=== PATIENT | female | born 1965 | race Caucasian/White ===

== ENCOUNTER 2020-12-13 16:36 | Emergency (ER) | payer MEDICAID ==
--- NOTE | 2020-12-13 17:10 | EDM.PDOC ---
ED HPI GENERAL MEDICAL PROBLEM - General Stated Complaint: GENERAL Time Seen by Provider: 12/13/20 17:05 Source of Information: Reports: Patient History Limitations: Reports: No Limitations - History of Present Illness INITIAL COMMENTS - FREE TEXT/NARRATIVE: pt comes in with here niec with multiple c/o chronic problems , including recurrent swelling of lower extremities on and off for years, has been getting worse the past 2-3 weeks, also c/o chronic low back pain, depression, poor feeding and poor appetite, pt report mild dry cough and worried today about covid, pt reports chronic dyspnea, denies fever or chills, or any other associated sx or concerns. pt is originally from [place], has moved to this [facility] about a year ago, indicates Hx of DM, CHF, CAD. depression . pt denies any other acute sx or concerns. Bilateral Lower Leg Pain Score (Numeric/FACES): 4 - Related Data Allergies Allergy/AdvReac Type Severity Reaction Status Date / Time No Known Allergies Allergy Verified 12/13/20 17:56 Home Meds: Home Meds Acetaminophen [Tylenol Arthritis Pain] 1,300 mg PO BID 12/13/20 [History] Cetirizine [ZyrTEC] 10 mg PO DAILY 12/13/20 [History] Cyanocobalamin/Folic Acid [Vitamin L93-Aofvi Acid] 50 mcg PO DAILY 12/13/20 [History] DULoxetine [Cymbalta] 60 mg PO DAILY 12/13/20 [History] Fenofibrate Nanocrystallized [Fenofibrate] 145 mg PO DAILY 12/13/20 [History] Metoprolol Succinate 50 mg PO DAILY 12/13/20 [History] Omeprazole 20 mg PO DAILY 12/13/20 [History] amLODIPine [Norvasc] 5 mg PO DAILY 12/13/20 [History] atorvaSTATin [Lipitor] 80 mg PO DAILY 12/13/20 [History] lisinopriL [Lisinopril] 40 mg PO DAILY 12/13/20 [History] metFORMIN [Glucophage] 500 mg PO BID 12/13/20 [History] ED ROS GENERAL - Review of Systems Review Of Systems: See Below Constitutional: Reports: Weakness, Fatigue. Denies: Fever, Malaise HEENT: Reports: No Symptoms Respiratory: Reports: Shortness of Breath, Cough. Denies: Pleuritic Chest Pain Cardiovascular: Reports: No Symptoms Endocrine: Reports: No Symptoms GI/Abdominal: Reports: No Symptoms : Reports: No Symptoms Musculoskeletal: Reports: Back Pain, Joint Pain. Denies: Muscle Stiffness Skin: Reports: No Symptoms Neurological: Reports: No Symptoms ED EXAM, GENERAL - Physical Exam Exam: See Below Exam Limited By: No Limitations General Appearance: Alert, No Apparent Distress Eye Exam: Bilateral Eye: Normal Inspection Ears: Normal TMs Nose: Normal Inspection Throat/Mouth: Normal Oropharynx Head: Atraumatic, Normocephalic Neck: Normal Inspection Respiratory/Chest: No Respiratory Distress, Lungs Clear, Normal Breath Sounds Cardiovascular: Normal Peripheral Pulses, Regular Rate, Rhythm, No Murmur GI/Abdominal: Normal Bowel Sounds, Soft, Non-Tender Back Exam: Normal Inspection Extremities: Normal Inspection, Normal Range of Motion, Normal Capillary Refill, Pedal Edema (pt has bilateral 2+ pitting edema at her feet. ) Neurological: Alert, Oriented, CN II-XII Intact, Normal Reflexes, No Motor/Se nsory Deficits Psychiatric: Normal Affect. No: Depressed Mood, Flat Affect, Tearful Skin Exam: Warm, Dry Course - Vital Signs Text/Narrative:: lab results were explained to pt, pt has mildly elevated WBC and liver enzymes / she is stable to follow on those issue with PCP. her peripheral edema is chronic and recurrent, i did ask her to stop her amlodipin as it will make this specific problem worse and i will place her on low dose lasix for few days, pt to follow with PCP in 1 week for re check. she is also to discuss then mng of chronic back pain and depression which they appear stable. Last Recorded V/S: Last Vital Signs Temp 36.4 C 12/13/20 16:36 Pulse 90 12/13/20 16:36 Resp 20 12/13/20 16:36 BP 110/73 12/13/20 16:36 Pulse Ox 98 12/13/20 16:36 - Orders/Labs/Meds Orders: Active Orders 24 hr Category Date Time Status CORONAVIRUS COVID-19 ORQUIDEA [MOLEC] Stat Lab 12/13/20 17:44 Received TSH ULTRASENSITIVE [CHEM] Stat Lab 12/13/20 17:40 Received Labs: Laboratory Tests 12/13/20 12/13/20 Range/Units 17:40 17:40 WBC 14.4 H (3.0-10.3) x10-3/uL RBC 3.52 L (3.60-5.20) x10(6)uL Hgb 12.2 (11.4-15.5) g/dL Hct 39.5 (34.2-48.2) % MCV 112.3 H (76.7-100.5) fL MCH 34.6 H (23.9-33.9) pg MCHC 30.8 L (31.9-34.8) g/dL RDW 16.3 (12.3-16.5) % Plt Count 389 (151-488) x10(3)uL MPV 8.0 (7.1-12.4) fL Neut % (Auto) 70.8 (30.8-76.2) % Lymph % (Auto) 22.8 (18.4-52.1) % Ida % (Auto) 5.5 (4.4-15.7) % Eos % (Auto) 0.4 L (0.6-8.1) % Baso % (Auto) 0.5 (0.2-1.5) % Neut # (Auto) 10.2 H (1.5-6.3) x10-3/uL Lymph # (Auto) 3.3 (1.0-4.4) x10-3/uL Ida # (Auto) 0.8 (0.3-1.0) x10-3/uL Eos # (Auto) 0.1 (0.0-0.8) x10-3/uL Baso # (Auto) 0.1 (0.0-0.1) x10-3/uL Sodium 142 (135-145) mmol/L Potassium 4.0 (3.5-5.3) mmol/L Chloride 101 (100-110) mmol/L Carbon Dioxide 18 L (21-32) mmol/L BUN 5 L (7-18) mg/dL Creatinine 0.9 (0.55-1.02) mg/dL Est Cr Clr Drug Dosing 67.87 mL/min Estimated GFR (MDRD) > 60 (>60) BUN/Creatinine Ratio 5.6 L (9-20) Glucose 115 (80-116) mg/dL Calcium 8.0 L (8.6-10.2) mg/dL Total Bilirubin 1.0 (0.1-1.3) mg/dL AST 97 H (5-25) IU/L ALT 91 H (12-36) U/L Alkaline Phosphatase 109 (56-112) IU/L Total Protein 5.8 L (6.0-8.0) g/dL Albumin 2.5 L (3.5-5.2) g/dL Globulin 3.3 g/dL Albumin/Globulin Ratio 0.8 Departure - Departure Time of Disposition: 18:11 Disposition: Home, Self-Care 01 Clinical Impression: Edema - Discharge Information Sepsis Event Note (ED) - Focused Exam Vital Signs: Vital Signs Temp Pulse Resp BP Pulse Ox 12/13/20 16:36 36.4 C 90 20 110/73 98 - My Orders Last 24 Hours: My Active Orders 12/13/20 17:40 TSH ULTRASENSITIVE [CHEM] Stat 12/13/20 17:44 CORONAVIRUS COVID-19 OQRUIDEA [MOLEC] Stat - Assessment/Plan Last 24 Hours: My Active Orders 12/13/20 17:40 TSH ULTRASENSITIVE [CHEM] Stat 12/13/20 17:44 CORONAVIRUS COVID-19 ORQUIDEA [MOLEC] Stat
== END 2020-12-13 18:28 | disposition home or self-care (01) ==
LOC: FB.ED 16:36
DX: R60.0 Localized edema (principal); D72.829 Elevated white blood cell count, unspecified; Z79.899 Other long term (current) drug therapy; Z20.822 Contact with and (suspected) exposure to COVID-19
CPT/HCPCS: 36415; 80053; 84443; 85025; 99284; U0002

== ENCOUNTER 2020-12-22 10:48 | Inpatient (IN) | payer MEDICAID ==
[2020-12-22] MEDS ORDERED: Sodium Chloride 0.9% 1,000 ML IV SCH (11:00)
[2020-12-22] MEDS: Sodium Chloride 0.9% 10 ML Syringe FLUSH PRN ×2 (11:08→12:46)
--- NOTE | 2020-12-22 12:45 | EDM.PDOC ---
ED HPI GENERAL MEDICAL PROBLEM - General Chief Complaint: General Stated Complaint: DEHYDRATION Time Seen by Provider: 12/22/20 10:55 Source of Information: Reports: Family History Limitations: Reports: No Limitations - History of Present Illness INITIAL COMMENTS - FREE TEXT/NARRATIVE: Patient is a 55 YO F who presented to the ED because of N/V/D x 1week and for the past several days she has been disoriented and confused. She also have decreased appetite, and low back pain which according to his nephew is old. There is no fever, chills, cough or cold symptoms. She is vaccinated with Covid and there is no sick exposure that. H/P taking is difficult as most of the information was gathered from ED JR)patient's nephew) and her boyfriend Daniel. - Related Data Allergies Allergy/AdvReac Type Severity Reaction Status Date / Time No Known Allergies Allergy Verified 12/13/20 17:56 Home Meds: Home Meds Acetaminophen [Tylenol Arthritis Pain] 1,300 mg PO BID 12/13/20 [History] Cetirizine [ZyrTEC] 10 mg PO DAILY 12/13/20 [History] Cyanocobalamin/Folic Acid [Vitamin W95-Nfjyq Acid] 50 mcg PO DAILY 12/13/20 [History] DULoxetine [Cymbalta] 60 mg PO DAILY 12/13/20 [History] Fenofibrate Nanocrystallized [Fenofibrate] 145 mg PO DAILY 12/13/20 [History] Furosemide [Lasix] 20 mg PO DAILY 7 Days #7 tab 12/13/20 [Rx] Metoprolol Succinate 50 mg PO DAILY 12/13/20 [History] Omeprazole 20 mg PO DAILY 12/13/20 [History] amLODIPine [Norvasc] 5 mg PO DAILY 12/13/20 [History] atorvaSTATin [Lipitor] 80 mg PO DAILY 12/13/20 [History] lisinopriL [Lisinopril] 40 mg PO DAILY 12/13/20 [History] metFORMIN [Glucophage] 500 mg PO BID 12/13/20 [History] Social & Family History - Family History Family Medical History: Unobtainable - Tobacco Use Tobacco Use Status *Q: Current Every Day Tobacco User Years of Tobacco use: 40 Packs/Tins Daily: 1 - Caffeine Use Caffeine Use: Reports: Coffee, Soda - Recreational Drug Use Recreational Drug Use: No Other Recreational Drug Type: Nephew says she has used different recreational drugs in the past but unsure if any being used currently ED ROS GENERAL - Review of Systems Review Of Systems: See Below Constitutional: Reports: Decreased Appetite HEENT: Reports: No Symptoms Respiratory: Reports: No Symptoms Cardiovascular: Reports: No Symptoms Endocrine: Reports: No Symptoms GI/Abdominal: Reports: Diarrhea, Nausea, Vomiting : Reports: No Symptoms Musculoskeletal: Reports: No Symptoms Skin: Reports: No Symptoms Neurological: Reports: Confusion Psychiatric: Reports: No Symptoms ED EXAM, GENERAL - Physical Exam Exam: See Below Exam Limited By: No Limitations General Appearance: Alert, No Apparent Distress Eye Exam: Bilateral Eye: PERRL Ears: Normal External Exam, Normal Canal, Normal TMs Nose: Normal Inspection, Normal Mucosa, No Blood Throat/Mouth: Normal Inspection, Normal Lips, Normal Teeth, Normal Oropharynx, Normal Voice Head: Atraumatic, Normocephalic Neck: Normal Inspection, Supple, Non-Tender, Full Range of Motion Respiratory/Chest: No Respiratory Distress, Lungs Clear, Normal Breath Sounds, No Accessory Muscle Use, Chest Non-Tender Cardiovascular: Normal Peripheral Pulses, Regular Rate, Rhythm, No Edema, No Gallop, No JVD, No Murmur, No Rub GI/Abdominal: Normal Bowel Sounds, Soft, Non-Tender, No Organomegaly, No Distention, No Abnormal Bruit Back Exam: Normal Inspection, Full Range of Motion Extremities: Normal Inspection, Non-Tender, Normal Capillary Refill Neurological: Confused, Disoriented, Slow to Respond #1 Interpretation EKG Date: 12/22/20 Time: 11:51 Rhythm: NSR Rate (Beats/Min): 80 [place]: Normal P-Wave: Present QRS: Normal ST-T: Normal QT: Normal AK/PQ Interval: 142 Comparison: NA - No Prior EKG EKG Interpretation Comments: NSR Course - Vital Signs Text/Narrative:: Lab/EKG/CXR/Head CT result was reviewed and discussed with patient and her nephew NS 1 L bolus Rocephin 1 gm IV x1 Last Recorded V/S: Last Vital Signs Temp 35.8 C L 12/22/20 10:48 Pulse 84 12/22/20 10:48 Resp 20 12/22/20 10:48 BP 154/95 H 12/22/20 10:48 Pulse Ox 100 12/22/20 10:48 - Orders/Labs/Meds Orders: Active Orders 24 hr Category Date Time Status Chest 1V Frontal [CR] Stat Exams 12/22/20 11:16 Taken Head wo Cont [CT] Stat Exams 12/22/20 11:23 Taken CORONAVIRUS COVID-19 ORQUIDEA [MOLEC] Stat Lab 12/22/20 11:16 Ordered CULTURE BLOOD [BC] Urgent Lab 12/22/20 11:41 Ordered CULTURE BLOOD [BC] Urgent Lab 12/22/20 11:41 Ordered CULTURE URINE [RM] Stat Lab 12/22/20 12:37 Ordered Sodium Chloride 0.9% @ 125 MLS/HR (1000ml) Med 12/22/20 12:15 Ordered Sodium Chloride 0.9% [Normal Saline] 1,000 ml IV ASDIRECTED Sodium Chloride 0.9% [Normal Saline] 1,000 ml Med 12/22/20 11:00 Active IV ASDIRECTED Sodium Chloride 0.9% [Saline Flush] Med 12/22/20 10:59 Active 10 ml FLUSH ASDIRECTED PRN cefTRIAXone [Rocephin] Med 12/22/20 12:45 Ordered 1 gm IVPUSH Q24H Blood Culture x2 Reflex Set [OM.PC] Urgent Oth 12/22/20 11:39 Ordered Saline Lock Insert [OM.PC] Routine Oth 12/22/20 10:59 Ordered EKG 12 Lead [EK] Routine Ther 12/22/20 11:16 Ordered Medication Orders Ceftriaxone Sodium (Ceftriaxone 1 Gm Vial) 1 gm IVPUSH Q24H MILLA Sodium Chloride (Normal Saline) 1,000 mls @ 999 mls/hr IV ASDIRECTED MILLA Last Admin: 12/22/20 11:14 Dose: 999 mls/hr Documented by: MARE Sodium Chloride (Normal Saline) 1,000 mls @ 125 mls/hr IV ASDIRECTED MILLA Sodium Chloride (Sodium Chloride 0.9% 10 Ml Syringe) 10 ml FLUSH ASDIRECTED PRN PRN Reason: Keep Vein Open Last Admin: 12/22/20 11:08 Dose: 10 ml Documented by: MARE Labs: Laboratory Tests 12/22/20 12/22/20 12/22/20 Range/Units 11:00 11:10 11:10 WBC 15.2 H (3.0-10.3) x10-3/uL RBC 3.23 L (3.60-5.20) x10(6)uL Hgb 11.3 L (11.4-15.5) g/dL Hct 36.9 (34.2-48.2) % MCV 114.4 H (76.7-100.5) fL MCH 35.2 H (23.9-33.9) pg MCHC 30.7 L (31.9-34.8) g/dL RDW 15.1 (12.3-16.5) % Plt Count 421 (151-488) x10(3)uL MPV 8.2 (7.1-12.4) fL Add Manual Diff Yes Neutrophils % (Manual) 77 (46-82) % Lymphocytes % (Manual) 19 (13-37) % Monocytes % (Manual) 4 (4-12) % Hypersegmented Neuts Few Macrocytosis Moderate H Sodium 141 (135-145) mmol/L Potassium 4.1 (3.5-5.3) mmol/L Chloride 96 L D (100-110) mmol/L Carbon Dioxide 15 L (21-32) mmol/L BUN 18 D (7-18) mg/dL Creatinine 1.4 H (0.55-1.02) mg/dL Est Cr Clr Drug Dosing TNP Estimated GFR (MDRD) 39 L (>60) BUN/Creatinine Ratio 12.9 (9-20) Glucose 163 H (80-116) mg/dL POC Glucose 123 H (80-116) mg/dL Lactic Acid (0.4-2.0) mmol/L Calcium 7.2 L (8.6-10.2) mg/dL Total Bilirubin 1.0 (0.1-1.3) mg/dL AST 111 H D (5-25) IU/L ALT 69 H D (12-36) U/L Alkaline Phosphatase 170 H (56-112) IU/L Troponin I (4.0-60.3) pg/mL Total Protein 5.6 L (6.0-8.0) g/dL Albumin 2.0 L (3.5-5.2) g/dL Globulin 3.6 g/dL Albumin/Globulin Ratio 0.6 Urine Color (YELLOW) Urine Appearance (CLEAR) Urine pH (5.0-6.5) Ur Specific [place] (1.010-1.025) Urine Protein (NEGATIVE) mg/dL Urine Glucose (UA) (NORMAL) mg/dL Urine Ketones (NEGATIVE) mg/dL Urine Occult Blood (NEGATIVE) Urine Nitrite (NEGATIVE) Urine Bilirubin (NEGATIVE) Urine Urobilinogen (NEGATIVE) mg/dL Ur Leukocyte Esterase (NEGATIVE) Urine RBC (0-5) Urine WBC (0-5) Ur Squamous Epith Cells (NS,R,O) Urine Bacteria (NS) Urine Opiates Screen (NEGATIVE) Ur Buprenorphine Scrn (NEGATIVE) Ur Oxycodone Screen (NEGATIVE) Urine Methadone Screen (NEGATIVE) Ur Propoxyphene Screen (NEGATIVE) Ur Barbiturates Screen (NEGATIVE) Ur Tricyclics Screen (NEGATIVE) Ur Phencyclidine Scrn (NEGATIVE) Ur Amphetamine Screen (NEGATIVE) U Methamphetamines Scrn (NEGATIVE) U Benzodiazepines Scrn (NEGATIVE) U Cocaine Metab Screen (NEGATIVE) U Marijuana (THC) Screen (NEGATIVE) Ethyl Alcohol (<0.03) % 12/22/20 12/22/20 12/22/20 Range/Units 11:10 11:10 11:10 WBC (3.0-10.3) x10-3/uL RBC (3.60-5.20) x10(6)uL Hgb (11.4-15.5) g/dL Hct (34.2-48.2) % MCV (76.7-100.5) fL MCH (23.9-33.9) pg MCHC (31.9-34.8) g/dL RDW (12.3-16.5) % Plt Count (151-488) x10(3)uL MPV (7.1-12.4) fL Add Manual Diff Neutrophils % (Manual) (46-82) % Lymphocytes % (Manual) (13-37) % Monocytes % (Manual) (4-12) % Hypersegmented Neuts Macrocytosis Sodium (135-145) mmol/L Potassium (3.5-5.3) mmol/L Chloride (100-110) mmol/L Carbon Dioxide (21-32) mmol/L BUN (7-18) mg/dL Creatinine (0.55-1.02) mg/dL Est Cr Clr Drug Dosing Estimated GFR (MDRD) (>60) BUN/Creatinine Ratio (9-20) Glucose (80-116) mg/dL POC Glucose (80-116) mg/dL Lactic Acid 1.8 (0.4-2.0) mmol/L Calcium (8.6-10.2) mg/dL Total Bilirubin (0.1-1.3) mg/dL AST (5-25) IU/L ALT (12-36) U/L Alkaline Phosphatase (56-112) IU/L Troponin I 13.5 (4.0-60.3) pg/mL Total Protein (6.0-8.0) g/dL Albumin (3.5-5.2) g/dL Globulin g/dL Albumin/Globulin Ratio Urine Color (YELLOW) Urine Appearance (CLEAR) Urine pH (5.0-6.5) Ur Specific [place] (1.010-1.025) Urine Protein (NEGATIVE) mg/dL Urine Glucose (UA) (NORMAL) mg/dL Urine Ketones (NEGATIVE) mg/dL Urine Occult Blood (NEGATIVE) Urine Nitrite (NEGATIVE) Urine Bilirubin (NEGATIVE) Urine Urobilinogen (NEGATIVE) mg/dL Ur Leukocyte Esterase (NEGATIVE) Urine RBC (0-5) Urine WBC (0-5) Ur Squamous Epith Cells (NS,R,O) Urine Bacteria (NS) Urine Opiates Screen (NEGATIVE) Ur Buprenorphine Scrn (NEGATIVE) Ur Oxycodone Screen (NEGATIVE) Urine Methadone Screen (NEGATIVE) Ur Propoxyphene Screen (NEGATIVE) Ur Barbiturates Screen (NEGATIVE) Ur Tricyclics Screen (NEGATIVE) Ur Phencyclidine Scrn (NEGATIVE) Ur Amphetamine Screen (NEGATIVE) U Methamphetamines Scrn (NEGATIVE) U Benzodiazepines Scrn (NEGATIVE) U Cocaine Metab Screen (NEGATIVE) U Marijuana (THC) Screen (NEGATIVE) Ethyl Alcohol < 0.03 (<0.03) % 12/22/20 12/22/20 Range/Units 12:18 12:18 WBC (3.0-10.3) x10-3/uL RBC (3.60-5.20) x10(6)uL Hgb (11.4-15.5) g/dL Hct (34.2-48.2) % MCV (76.7-100.5) fL MCH (23.9-33.9) pg MCHC (31.9-34.8) g/dL RDW (12.3-16.5) % Plt Count (151-488) x10(3)uL MPV (7.1-12.4) fL Add Manual Diff Neutrophils % (Manual) (46-82) % Lymphocytes % (Manual) (13-37) % Monocytes % (Manual) (4-12) % Hypersegmented Neuts Macrocytosis Sodium (135-145) mmol/L Potassium (3.5-5.3) mmol/L Chloride (100-110) mmol/L Carbon Dioxide (21-32) mmol/L BUN (7-18) mg/dL Creatinine (0.55-1.02) mg/dL Est Cr Clr Drug Dosing Estimated GFR (MDRD) (>60) BUN/Creatinine Ratio (9-20) Glucose (80-116) mg/dL POC Glucose (80-116) mg/dL Lactic Acid (0.4-2.0) mmol/L Calcium (8.6-10.2) mg/dL Total Bilirubin (0.1-1.3) mg/dL AST (5-25) IU/L ALT (12-36) U/L Alkaline Phosphatase (56-112) IU/L Troponin I (4.0-60.3) pg/mL Total Protein (6.0-8.0) g/dL Albumin (3.5-5.2) g/dL Globulin g/dL Albumin/Globulin Ratio Urine Color Yellow (YELLOW) Urine Appearance Cloudy (CLEAR) Urine pH 6.0 (5.0-6.5) Ur Specific [place] 1.020 (1.010-1.025) Urine Protein Trace (NEGATIVE) mg/dL Urine Glucose (UA) Normal (NORMAL) mg/dL Urine Ketones 50 H (NEGATIVE) mg/dL Urine Occult Blood Trace (NEGATIVE) Urine Nitrite Negative (NEGATIVE) Urine Bilirubin Small H (NEGATIVE) Urine Urobilinogen 1 H (NEGATIVE) mg/dL Ur Leukocyte Esterase Large H (NEGATIVE) Urine RBC 5-10 H (0-5) Urine WBC >100 H (0-5) Ur Squamous Epith Cells Occasional (NS,R,O) Urine Bacteria Many H (NS) Urine Opiates Screen Negative (NEGATIVE) Ur Buprenorphine Scrn Negative (NEGATIVE) Ur Oxycodone Screen Negative (NEGATIVE) Urine Methadone Screen Negative (NEGATIVE) Ur Propoxyphene Screen Negative (NEGATIVE) Ur Barbiturates Screen Negative (NEGATIVE) Ur Tricyclics Screen Negative (NEGATIVE) Ur Phencyclidine Scrn Negative (NEGATIVE) Ur Amphetamine Screen Negative (NEGATIVE) U Methamphetamines Scrn Negative (NEGATIVE) U Benzodiazepines Scrn Negative (NEGATIVE) U Cocaine Metab Screen Negative (NEGATIVE) U Marijuana (THC) Screen Negative (NEGATIVE) Ethyl Alcohol (<0.03) % Meds: Medications Generic Name Dose Route Start Last Admin Trade Name Freq PRN Reason Stop Dose Admin Ceftriaxone Sodium 1 gm 12/22/20 12:45 Ceftriaxone 1 Gm Vial IVPUSH Q24H MILLA Sodium Chloride 1,000 mls @ 999 mls/hr 12/22/20 11:00 12/22/20 11:14 Normal Saline IV 999 mls/hr ASDIRECTED MILLA Administration Sodium Chloride 1,000 mls @ 125 mls/hr 12/22/20 12:15 Normal Saline IV ASDIRECTED MILLA Sodium Chloride 10 ml 12/22/20 10:59 12/22/20 11:08 Sodium Chloride 0.9% 10 Ml Syringe FLUSH 10 ml ASDIRECTED PRN Administration Keep Vein Open Departure - Departure Time of Disposition: 12:30 Disposition: Refer to Observation Condition: Good Clinical Impression: Encephalopathy, Acute gastroenteritis, Dehydration, CKD (chronic kidney disease), UTI (urinary tract infection) - Discharge Information Referrals: Graciela Ireland, PHOTOGRAPHIC EDITOR [Primary Care Provider] - Sepsis Event Note (ED) - Evaluation Sepsis Screening Result: No Definite Risk - Focused Exam Vital Signs: Vital Signs Temp Pulse Resp BP Pulse Ox 12/22/20 10:48 35.8 C L 84 20 154/95 H 100 - My Orders Last 24 Hours: My Active Orders 12/22/20 10:59 Sodium Chloride 0.9% [Saline Flush] 10 ml FLUSH ASDIRECTED PRN Saline Lock Insert [OM.PC] Routine 12/22/20 11:00 Sodium Chloride 0.9% [Normal Saline] 1,000 ml IV ASDIRECTED 12/22/20 11:16 Chest 1V Frontal [CR] Stat CORONAVIRUS COVID-19 ORQUIDEA [MOLEC] Stat EKG 12 Lead [EK] Routine 12/22/20 11:23 Head wo Cont [CT] Stat 12/22/20 11:39 Blood Culture x2 Reflex Set [OM.PC] Urgent 12/22/20 11:41 CULTURE BLOOD [BC] Urgent CULTURE BLOOD [BC] Urgent 12/22/20 12:15 Sodium Chloride 0.9% @ 125 MLS/HR (1000ml) Sodium Chloride 0.9% [Normal Saline] 1,000 ml IV ASDIRECTED 12/22/20 12:37 CULTURE URINE [RM] Stat 12/22/20 12:45 cefTRIAXone [Rocephin] 1 gm IVPUSH Q24H - Assessment/Plan Last 24 Hours: My Active Orders 12/22/20 10:59 Sodium Chloride 0.9% [Saline Flush] 10 ml FLUSH ASDIRECTED PRN Saline Lock Insert [OM.PC] Routine 12/22/20 11:00 Sodium Chloride 0.9% [Normal Saline] 1,000 ml IV ASDIRECTED 12/22/20 11:16 Chest 1V Frontal [CR] Stat CORONAVIRUS COVID-19 ORQUIDEA [MOLEC] Stat EKG 12 Lead [EK] Routine 12/22/20 11:23 Head wo Cont [CT] Stat 12/22/20 11:39 Blood Culture x2 Reflex Set [OM.PC] Urgent 12/22/20 11:41 CULTURE BLOOD [BC] Urgent CULTURE BLOOD [BC] Urgent 12/22/20 12:15 Sodium Chloride 0.9% @ 125 MLS/HR (1000ml) Sodium Chloride 0.9% [Normal Saline] 1,000 ml IV ASDIRECTED 12/22/20 12:37 CULTURE URINE [RM] Stat 12/22/20 12:45 cefTRIAXone [Rocephin] 1 gm IVPUSH Q24H
[2020-12-22] MEDS: cefTRIAXone 1 GM Vial IVPUSH SCH (12:46)
[2020-12-22] MEDS: Sodium Chloride 0.9% 1,000 ML IV SCH ×2 (12:50→21:39)
--- NOTE | 2020-12-22 18:27 | PCM.HP.2 ---
H&P History of Present Illness - General Date of Service: 12/22/20 Admit Problem/Dx: Admission Diagnosis/Problem Admission Diagnosis/Problem Encephalopathy Source of Information: Old Records, Provider History Limitations: Reports: Altered Mental Status - History of Present Illness Initial Comments - Free Text/Narative: Information for this report is taken from old records, provider secondary to the patient not answering any questions. 55-year-old lady was brought to the emergency department due to a 1 week history of nausea, vomiting, diarrhea. Over the last several days she has been disoriented and confused. She has had decreased appetite. She has low back pain which is reported as chronic. Family did not report any history of fever, chills, flulike symptoms. She is fully vaccinated against Covid and has no known recent exposures. Review of her past medical record from [facility] shows a history of hypertension, coronary artery disease with history of stent placement. 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 Review of her past medical record shows that her A1c was 7.3 March 23, 2020. She did not have a history of kidney disease or reduced kidney function prior to today's admission according to previous labs performed 03/23/2020. - Related Data Allergies/Adverse Reactions: Allergies Allergy/AdvReac Type Severity Reaction Status Date / Time No Known Allergies Allergy Verified 12/13/20 17:56 Home Medications: Home Meds Acetaminophen [Tylenol Arthritis Pain] 1,300 mg PO BID PRN 12/13/20 [History] Cetirizine [ZyrTEC] 10 mg PO DAILY 12/13/20 [History] DULoxetine [Cymbalta] 60 mg PO DAILY 12/13/20 [History] Fenofibrate Nanocrystallized [Fenofibrate] 145 mg PO DAILY 12/13/20 [History] Furosemide [Lasix] 20 mg PO DAILY 7 Days #7 tab 12/13/20 [Rx] Metoprolol Succinate 50 mg PO DAILY 12/13/20 [History] Omeprazole 20 mg PO DAILY 12/13/20 [History] amLODIPine [Norvasc] 5 mg PO DAILY 12/13/20 [History] atorvaSTATin [Lipitor] 80 mg PO DAILY 12/13/20 [History] lisinopriL [Lisinopril] 40 mg PO DAILY 12/13/20 [History] metFORMIN [Glucophage] 500 mg PO BID 12/13/20 [History] Cyanocobalamin (Vitamin B-12) [Vitamin B-12] 50 mcg PO DAILY 12/22/20 [History] Past Medical History HEENT History: Reports: Other (See Below) Other HEENT History: unable to assess Psychiatric History: Reports: Addiction, Anxiety, Depression, Eating Disorders, Other (See Below) Other Psychiatric History: pt family states she has an eating disorder, anxiety, depression, and alcohol abuser Endocrine/Metabolic History: Reports: Diabetes, Type II Other Endocrine/Metabolic History: pt family states she is a type II diabetic. - Past Surgical History HEENT Surgical History: Reports: Other (See Below) Other HEENT Surgeries/Procedures: unable to assess Social & Family History - Family History Family Medical History: Unobtainable - Tobacco Use Tobacco Use Status *Q: Current Every Day Tobacco User Years of Tobacco use: 2 Packs/Tins Daily: 0.5 - Caffeine Use Caffeine Use: Reports: Coffee, Soda - Alcohol Use Days Per Week of Alcohol Use: 7 Number of Drinks Per Day: 3 Total Drinks Per Week: 21 - Recreational Drug Use Recreational Drug Use: No Other Recreational Drug Type: Nephew says she has used different recreational dr ugs in the past but unsure if any being used currently H&P Review of Systems - Review of Systems: Review Of Systems: Unable To Obtain Reason Not Obtained: Patient is nonverbal Exam - Exam Exam: See Below - Vital Signs Vital Signs: Last Vital Signs Temp 36.1 C 12/22/20 15:19 Pulse 102 H 12/22/20 15:19 Resp 18 12/22/20 15:19 BP 129/67 12/22/20 15:19 Pulse Ox 99 12/22/20 15:19 Weight: 66.497 kg (Patient turned her head towards me and open her eyes when I first spoke to her and entering the room but would not speak further) - Exam Quality Assessment: Supplemental Oxygen, DVT Prophylaxis General: Alert, Lethargic, Other (Patient seemed to respond to physical stimuli and turned her head towards me and open her eyes when I entered the room. She began to lift her head off the pillow repeatedly and moan) HEENT: Other (Pupils were initially dilated at approximately 4 to 5 mm, they are reactive to light bilaterally but mildly sluggish) Neck: Supple Lungs: Other (Clear to auscultation anteriorly) Cardiovascular: Regular Rate, Regular Rhythm GI/Abdominal Exam: Normal Bowel Sounds, Soft Extremities: No Pedal Edema Peripheral Pulses: 1+: Dorsalis Pedis (L), Dorsalis Pedis (R), 2+: Radial (L), Radial (R) Skin: Warm, Dry, Other (Several wounds and abrasions, ecchymosis in different stages of healing) Neurological: Other (Unable to test secondary to patient presentation) Psychiatric: Other (Altered) - Patient Data Lab Results Last 24 hrs: Laboratory Results - last 24 hr 12/22/20 12/22/20 12/22/20 Range/Units 11:00 11:10 11:10 WBC 15.2 H (3.0-10.3) x10-3/uL RBC 3.23 L (3.60-5.20) x10(6)uL Hgb 11.3 L (11.4-15.5) g/dL Hct 36.9 (34.2-48.2) % MCV 114.4 H (76.7-100.5) fL MCH 35.2 H (23.9-33.9) pg MCHC 30.7 L (31.9-34.8) g/dL RDW 15.1 (12.3-16.5) % Plt Count 421 (151-488) x10(3)uL MPV 8.2 (7.1-12.4) fL Add Manual Diff Yes Neutrophils % (Manual) 77 (46-82) % Lymphocytes % (Manual) 19 (13-37) % Monocytes % (Manual) 4 (4-12) % Hypersegmented Neuts Few Macrocytosis Moderate H Sodium 141 (135-145) mmol/L Potassium 4.1 (3.5-5.3) mmol/L Chloride 96 L D (100-110) mmol/L Carbon Dioxide 15 L (21-32) mmol/L BUN 18 D (7-18) mg/dL Creatinine 1.4 H (0.55-1.02) mg/dL Est Cr Clr Drug Dosing TNP Estimated GFR (MDRD) 39 L (>60) BUN/Creatinine Ratio 12.9 (9-20) Glucose 163 H (80-116) mg/dL POC Glucose 123 H (80-116) mg/dL Lactic Acid (0.4-2.0) mmol/L Calcium 7.2 L (8.6-10.2) mg/dL Total Bilirubin 1.0 (0.1-1.3) mg/dL AST 111 H D (5-25) IU/L ALT 69 H D (12-36) U/L Alkaline Phosphatase 170 H (56-112) IU/L Troponin I (4.0-60.3) pg/mL Total Protein 5.6 L (6.0-8.0) g/dL Albumin 2.0 L (3.5-5.2) g/dL Globulin 3.6 g/dL Albumin/Globulin Ratio 0.6 Urine Color (YELLOW) Urine Appearance (CLEAR) Urine pH (5.0-6.5) Ur Specific [place] (1.010-1.025) Urine Protein (NEGATIVE) mg/dL Urine Glucose (UA) (NORMAL) mg/dL Urine Ketones (NEGATIVE) mg/dL Urine Occult Blood (NEGATIVE) Urine Nitrite (NEGATIVE) Urine Bilirubin (NEGATIVE) Urine Urobilinogen (NEGATIVE) mg/dL Ur Leukocyte Esterase (NEGATIVE) Urine RBC (0-5) Urine WBC (0-5) Ur Squamous Epith Cells (NS,R,O) Urine Bacteria (NS) Urine Opiates Screen (NEGATIVE) Ur Buprenorphine Scrn (NEGATIVE) Ur Oxycodone Screen (NEGATIVE) Urine Methadone Screen (NEGATIVE) Ur Propoxyphene Screen (NEGATIVE) Ur Barbiturates Screen (NEGATIVE) Ur Tricyclics Screen (NEGATIVE) Ur Phencyclidine Scrn (NEGATIVE) Ur Amphetamine Screen (NEGATIVE) U Methamphetamines Scrn (NEGATIVE) U Benzodiazepines Scrn (NEGATIVE) U Cocaine Metab Screen (NEGATIVE) U Marijuana (THC) Screen (NEGATIVE) Ethyl Alcohol (<0.03) % SARS-CoV-2 RNA ([place]) (NEGATIVE) 12/22/20 12/22/20 12/22/20 Range/Units 11:10 11:10 11:10 WBC (3.0-10.3) x10-3/uL RBC (3.60-5.20) x10(6)uL Hgb (11.4-15.5) g/dL Hct (34.2-48.2) % MCV (76.7-100.5) fL MCH (23.9-33.9) pg MCHC (31.9-34.8) g/dL RDW (12.3-16.5) % Plt Count (151-488) x10(3)uL MPV (7.1-12.4) fL Add Manual Diff Neutrophils % (Manual) (46-82) % Lymphocytes % (Manual) (13-37) % Monocytes % (Manual) (4-12) % Hypersegmented Neuts Macrocytosis Sodium (135-145) mmol/L Potassium (3.5-5.3) mmol/L Chloride (100-110) mmol/L Carbon Dioxide (21-32) mmol/L BUN (7-18) mg/dL Creatinine (0.55-1.02) mg/dL Est Cr Clr Drug Dosing Estimated GFR (MDRD) (>60) BUN/Creatinine Ratio (9-20) Glucose (80-116) mg/dL POC Glucose (80-116) mg/dL Lactic Acid 1.8 (0.4-2.0) mmol/L Calcium (8.6-10.2) mg/dL Total Bilirubin (0.1-1.3) mg/dL AST (5-25) IU/L ALT (12-36) U/L Alkaline Phosphatase (56-112) IU/L Troponin I 13.5 (4.0-60.3) pg/mL Total Protein (6.0-8.0) g/dL Albumin (3.5-5.2) g/dL Globulin g/dL Albumin/Globulin Ratio Urine Color (YELLOW) Urine Appearance (CLEAR) Urine pH (5.0-6.5) Ur Specific [place] (1.010-1.025) Urine Protein (NEGATIVE) mg/dL Urine Glucose (UA) (NORMAL) mg/dL Urine Ketones (NEGATIVE) mg/dL Urine Occult Blood (NEGATIVE) Urine Nitrite (NEGATIVE) Urine Bilirubin (NEGATIVE) Urine Urobilinogen (NEGATIVE) mg/dL Ur Leukocyte Esterase (NEGATIVE) Urine RBC (0-5) Urine WBC (0-5) Ur Squamous Epith Cells (NS,R,O) Urine Bacteria (NS) Urine Opiates Screen (NEGATIVE) Ur Buprenorphine Scrn (NEGATIVE) Ur Oxycodone Screen (NEGATIVE) Urine Methadone Screen (NEGATIVE) Ur Propoxyphene Screen (NEGATIVE) Ur Barbiturates Screen (NEGATIVE) Ur Tricyclics Screen (NEGATIVE) Ur Phencyclidine Scrn (NEGATIVE) Ur Amphetamine Screen (NEGATIVE) U Methamphetamines Scrn (NEGATIVE) U Benzodiazepines Scrn (NEGATIVE) U Cocaine Metab Screen (NEGATIVE) U Marijuana (THC) Screen (NEGATIVE) Ethyl Alcohol < 0.03 (<0.03) % SARS-CoV-2 RNA ([place]) (NEGATIVE) 12/22/20 12/22/20 12/22/20 Range/Units 11:55 12:18 12:18 WBC (3.0-10.3) x10-3/uL RBC (3.60-5.20) x10(6)uL Hgb (11.4-15.5) g/dL Hct (34.2-48.2) % MCV (76.7-100.5) fL MCH (23.9-33.9) pg MCHC (31.9-34.8) g/dL RDW (12.3-16.5) % Plt Count (151-488) x10(3)uL MPV (7.1-12.4) fL Add Manual Diff Neutrophils % (Manual) (46-82) % Lymphocytes % (Manual) (13-37) % Monocytes % (Manual) (4-12) % Hypersegmented Neuts Macrocytosis Sodium (135-145) mmol/L Potassium (3.5-5.3) mmol/L Chloride (100-110) mmol/L Carbon Dioxide (21-32) mmol/L BUN (7-18) mg/dL Creatinine (0.55-1.02) mg/dL Est Cr Clr Drug Dosing Estimated GFR (MDRD) (>60) BUN/Creatinine Ratio (9-20) Glucose (80-116) mg/dL POC Glucose (80-116) mg/dL Lactic Acid (0.4-2.0) mmol/L Calcium (8.6-10.2) mg/dL Total Bilirubin (0.1-1.3) mg/dL AST (5-25) IU/L ALT (12-36) U/L Alkaline Phosphatase (56-112) IU/L Troponin I (4.0-60.3) pg/mL Total Protein (6.0-8.0) g/dL Albumin (3.5-5.2) g/dL Globulin g/dL Albumin/Globulin Ratio Urine Color Yellow (YELLOW) Urine Appearance Cloudy (CLEAR) Urine pH 6.0 (5.0-6.5) Ur Specific [place] 1.020 (1.010-1.025) Urine Protein Trace (NEGATIVE) mg/dL Urine Glucose (UA) Normal (NORMAL) mg/dL Urine Ketones 50 H (NEGATIVE) mg/dL Urine Occult Blood Trace (NEGATIVE) Urine Nitrite Negative (NEGATIVE) Urine Bilirubin Small H (NEGATIVE) Urine Urobilinogen 1 H (NEGATIVE) mg/dL Ur Leukocyte Esterase Large H (NEGATIVE) Urine RBC 5-10 H (0-5) Urine WBC >100 H (0-5) Ur Squamous Epith Cells Occasional (NS,R,O) Urine Bacteria Many H (NS) Urine Opiates Screen Negative (NEGATIVE) Ur Buprenorphine Scrn Negative (NEGATIVE) Ur Oxycodone Screen Negative (NEGATIVE) Urine Methadone Screen Negative (NEGATIVE) Ur Propoxyphene Screen Negative (NEGATIVE) Ur Barbiturates Screen Negative (NEGATIVE) Ur Tricyclics Screen Negative (NEGATIVE) Ur Phencyclidine Scrn Negative (NEGATIVE) Ur Amphetamine Screen Negative (NEGATIVE) U Methamphetamines Scrn Negative (NEGATIVE) U Benzodiazepines Scrn Negative (NEGATIVE) U Cocaine Metab Screen Negative (NEGATIVE) U Marijuana (THC) Screen Negative (NEGATIVE) Ethyl Alcohol (<0.03) % SARS-CoV-2 RNA ([place]) Negative (NEGATIVE) Result Diagrams: 12/22/20 11:10 12/22/20 11:10 Sepsis Event Note - Evaluation Sepsis Screening Result: Severe Sepsis Risk - Focused Exam Vital Signs: Vital Signs Temp Pulse Resp BP Pulse Ox 12/22/20 15:19 36.1 C 102 H 18 129/67 99 12/22/20 13:55 36.6 C 96 20 139/98 H 98 12/22/20 10:48 35.8 C L 84 20 154/95 H 100 - Problem List (1) Acute kidney injury SNOMED Code(s): 46404777, 27115998 ICD Code: N17.9 - ACUTE KIDNEY FAILURE, UNSPECIFIED Status: Acute Current Visit: Yes (2) Diabetes mellitus type 2 in nonobese SNOMED Code(s): 555638485 ICD Code: E11.9 - TYPE 2 DIABETES MELLITUS WITHOUT COMPLICATIONS Status: Chronic Current Visit: Yes (3) CAD (coronary artery disease) SNOMED Code(s): 26257444 ICD Code: I25.10 - ATHSCL HEART DISEASE OF [place] CORONARY ARTERY W/O ANG PCTRS Status: Chronic Current Visit: Yes (4) History of heart artery stent SNOMED Code(s): 677051904, 342968646 ICD Code: Z95.5 - PRESENCE OF CORONARY ANGIOPLASTY IMPLANT AND GRAFT Status: Chronic Current Visit: Yes (5) Alcohol abuse SNOMED Code(s): 42013987 ICD Code: F10.10 - ALCOHOL ABUSE, UNCOMPLICATED Status: Chronic Current Visit: Yes (6) Major depressive disorder SNOMED Code(s): 254103754 ICD Code: F32.9 - MAJOR DEPRESSIVE DISORDER, SINGLE EPISODE, UNSPECIFIED Status: Chronic Current Visit: Yes (7) CATHERINE (generalized anxiety disorder) SNOMED Code(s): 06862803 ICD Code: F41.1 - GENERALIZED ANXIETY DISORDER Status: Chronic Current Visit: Yes (8) Encephalopathy SNOMED Code(s): 94163609 ICD Code: G93.40 - ENCEPHALOPATHY, UNSPECIFIED Status: Acute Current Visit: Yes (9) UTI (urinary tract infection) SNOMED Code(s): 61718831 ICD Code: N39.0 - URINARY TRACT INFECTION, SITE NOT SPECIFIED Status: Acute Current Visit: Yes (10) Edema SNOMED Code(s): 884235966, 747985292 ICD Code: R60.9 - EDEMA, UNSPECIFIED Status: Acute Current Visit: No Problem List Initiated/Reviewed/Updated: Yes Orders Last 24hrs: Active Orders 24 hr Category Date Time Status Patient Status [ADT] Routine ADT 12/22/20 15:19 Active Antiembolic Devices [RC] .Routine Care 12/22/20 15:20 Active Pulse Oximetry [RC] PRN Care 12/22/20 15:19 Active VTE/DVT Education [RC] Click to Edit Care 12/22/20 15:20 Active Vital Signs [RC] Q4H Care 12/22/20 15:19 Active Chest 1V Frontal [CR] Stat Exams 12/22/20 11:16 Taken Head wo Cont [CT] Stat Exams 12/22/20 11:23 Taken AMMONIA, PLASMA Stat Lab 12/22/20 15:45 Received BASIC METABOLIC PANEL,BMP [CHEM] Routine Lab 12/23/20 Ordered CBC WITH AUTO DIFF [HEME] Routine Lab 12/23/20 Ordered CULTURE BLOOD [BC] Urgent Lab 12/22/20 12:00 Received CULTURE BLOOD [BC] Urgent Lab 12/22/20 12:35 Received CULTURE URINE [RM] Stat Lab 12/22/20 12:18 Received Acetaminophen [Tylenol Arthritis Pain] Med 12/22/20 21:00 Active 1,300 mg PO BID PRN Cetirizine [ZyrTEC] Med 12/23/20 09:00 Active 10 mg PO DAILY DULoxetine [Cymbalta] Med 12/23/20 09:00 Active 60 mg PO DAILY Enoxaparin [Lovenox] Med 12/22/20 18:30 Ordered 40 mg SUBCUT Q12H Metoprolol Succinate [Toprol XL] Med 12/23/20 09:00 Active 50 mg PO DAILY Pantoprazole [ProTONIX] Med 12/23/20 06:00 Active 40 mg PO DAILY@0600 Sodium Chloride 0.9% [Normal Saline] 1,000 ml Med 12/22/20 12:15 Active IV ASDIRECTED Sodium Chloride 0.9% [Saline Flush] Med 12/22/20 10:59 Active 10 ml FLUSH ASDIRECTED PRN amLODIPine [Norvasc] Med 12/23/20 09:00 Pending 5 mg PO DAILY atorvaSTATin [Lipitor] Med 12/23/20 09:00 Active 80 mg PO DAILY cefTRIAXone [Rocephin] Med 12/22/20 12:45 Active 1 gm IVPUSH Q24H lisinopriL [Prinivil] Med 12/23/20 09:00 Active 40 mg PO DAILY metFORMIN [Glucophage] Med 12/22/20 21:00 Active 500 mg PO BID DVT/VTE Prophylaxis Reflex [OM.PC] Per Unit Routine Oth 12/22/20 15:19 Ordered Resuscitation Status Routine Resus Stat 12/22/20 15:19 Ordered EKG 12 Lead [EK] Routine Ther 12/22/20 11:16 Stop Req Medication Orders Acetaminophen (Acetaminophen 650 Mg Tab.Er) 1,300 mg PO BID PRN PRN Reason: PAIN Amlodipine Besylate (Amlodipine 5 Mg Tab) 5 mg PO DAILY MILLA Atorvastatin Calcium (Atorvastatin 40 Mg Tab) 80 mg PO DAILY MILLA Ceftriaxone Sodium (Ceftriaxone 1 Gm Vial) 1 gm IVPUSH Q24H MILLA Last Admin: 11/10/21 12:46 Dose: 1 gm Documented by: SHELDON Cetirizine HCl (Cetirizine 10 Mg Tab) 10 mg PO DAILY [facility] Duloxetine HCl (Duloxetine 60 Mg Cap) 60 mg PO DAILY [facility] Enoxaparin Sodium (Enoxaparin 40 Mg/0.4 Ml Syringe) 40 mg SUBCUT Q12H [facility] Sodium Chloride (Normal Saline) 1,000 mls @ 125 mls/hr IV ASDIRECTED [facility] Last Admin: 12/22/20 12:50 Dose: 125 mls/hr Documented by: MARE Lisinopril (Lisinopril 40 Mg Tab) 40 mg PO DAILY [facility] Metformin HCl (Metformin 500 Mg Tab) 500 mg PO BID [facility] Metoprolol Succinate (Metoprolol Succinate 50 Mg Tab.Er) 50 mg PO DAILY [facility] Pantoprazole Sodium (Pantoprazole 40 Mg Tab.Cr) 40 mg PO DAILY@0600 [facility] Sodium Chloride (Sodium Chloride 0.9% 10 Ml Syringe) 10 ml FLUSH ASDIRECTED PRN PRN Reason: Keep Vein Open Last Admin: 12/22/20 12:46 Dose: 10 ml Documented by: Admin: 12/22/20 11:08 Dose: 10 ml Documented by: MARE Assessment/Plan Comment:: 1. Encephalopathy: Ammonia level has been ordered. Patient turned her head towards me lifted her head off the pillow and open her eyes when I entered the room and for spoke to her. She then began to repeatedly lift her head up and down and moan. I have significant suspicion that this behavior is fictitious and may be related to an acute exacerbation of severe depression. Patient is not catatonic by definition. 2. Urinary tract infection: Ceftriaxone. Treatment recommendations based on culture results 3. Acute kidney injury: Trend renal function, gentle fluids 4. Edema: The left leg seems to be slightly larger than the right leg. We will get bilateral lower extremity venous duplex 5. Diabetes mellitus type 2: We will trend blood glucose and treat as necessary including sliding scale insulin if indicated 6. Comorbidities: Continue home medications as appropriate if patient allows us to give her oral medications if not we will treat to keep blood pressure, other vital signs within normal limits 7. DVT prophylaxis: Enoxaparin 40 mg subcu twice daily 8. GI prophylaxis: PPI 9. Disposition: We will watch the patient overnight to determine if her behavior is fictitious. Patient will likely have psych consult in the morning. Disposition depending on outcome of psych consult, patient behavior, improvement from encephalopathy/current behaviors, resolution of chronic kidney injury/UTI.
[2020-12-22] MEDS ORDERED: Glucagon,Human Recombinant 1 MG Vial IM PRN (18:48)
[2020-12-22] MEDS ORDERED: 50% Dextrose in Water 50 ML Syringe IVPUSH PRN (18:48)
[2020-12-22] MEDS: Pantoprazole 40 MG Vial IVPUSH SCH (20:56)
[2020-12-22] MEDS: Enoxaparin 40 MG/0.4 ML Syringe SUBCUT SCH (20:59)
[2020-12-22] MEDS ORDERED: metFORMIN 500 MG Tab PO SCH (21:00)
[2020-12-22] MEDS ORDERED: Acetaminophen 650 MG Tab.ER PO PRN (21:00)
[2020-12-23] MEDS: Sodium Chloride 0.9% 1,000 ML IV SCH ×2 (05:57→16:40)
[2020-12-23] MEDS ORDERED: Pantoprazole 40 MG Tab.CR PO SCH (06:00)
[2020-12-23] MEDS: Gentamicin 0.3% Ophth Soln 5 ML Bottle EYEBOTH SCH ×5 (06:15→20:12)
[2020-12-23] MEDS ORDERED: Iopamidol 755 Mg/ML 75 ML Bottle IV ONE (07:59)
[2020-12-23] MEDS ORDERED: Potassium Chloride 20 MEQ in Premix Bag 1 BAG IV ONE (08:12)
[2020-12-23 08:41] LABS: BASE EXCESS VENOUS,POC -14 mmol/L (-2 - 3+); PCO2 VENOUS,POC 17 mmHg (41-51); PH VENOUS,POC 7.35 pH Units (7.32-7.43)
[2020-12-23] MEDS: Insulin Lispro 100 Unit/ML 3 ML KwikPen SUBCUT SCH ×3 (08:47→17:43)
[2020-12-23] MEDS: DULoxetine 60 MG Cap PO SCH (08:55)
[2020-12-23] MEDS: Metoprolol Succinate 50 MG Tab.ER PO SCH (08:55)
[2020-12-23] MEDS: atorvaSTATin 40 MG Tab PO SCH (08:55)
[2020-12-23] MEDS: Cetirizine 10 MG Tab PO SCH (08:56)
[2020-12-23] MEDS ORDERED: CYANOCOBALAMIN PO SCH (09:00)
[2020-12-23] MEDS ORDERED: Gentamicin 0.3% Ophth Soln 5 ML Bottle EYEBOTH SCH (09:00)
[2020-12-23] MEDS ORDERED: Non-Formulary Medication 1 Each (Cyanocobalamin (Vitamin B-12) [Vitamin B-12] 50 MCG Table PO SCH (09:00)
[2020-12-23] MEDS ORDERED: [UNRECOGNIZED DRUG - OTHER] PO SCH (09:00)
[2020-12-23] MEDS ORDERED: FOLIC ACID PO SCH (09:00)
[2020-12-23] MEDS ORDERED: amLODIPine 5 MG Tab PO SCH (09:00)
--- NOTE | 2020-12-23 09:05 | PCM.PN ---
- General Info Date of Service: 12/23/20 Admission Dx/Problem (Free Text): Admission Diagnosis/Problem Admission Diagnosis/Problem Encephalopathy Subjective Update: Patient is obtunded at this time and does not answer any questions - Patient Data Vitals - Most Recent: Last Vital Signs Temp 36.2 C 12/23/20 05:00 Pulse 104 H 12/23/20 08:55 Resp 22 H 12/23/20 05:00 BP 142/92 H 12/23/20 08:55 Pulse Ox 94 L 12/23/20 05:00 Weight - Most Recent: 66.497 kg (Patient turned her head towards me and open her eyes when I first spoke to her and entering the room but would not speak f urther) I&O - Last 24 Hours: Intake & Output 12/22/20 12/23/20 12/23/20 22:59 06:59 14:59 Intake Total 875 997 Balance 875 997 Lab Results Last 24 Hours: Laboratory Results - last 24 hr 12/22/20 12/22/20 12/22/20 Range/Units 11:00 11:10 11:10 WBC 15.2 H (3.0-10.3) x10-3/uL RBC 3.23 L (3.60-5.20) x10(6)uL Hgb 11.3 L (11.4-15.5) g/dL Hct 36.9 (34.2-48.2) % MCV 114.4 H (76.7-100.5) fL MCH 35.2 H (23.9-33.9) pg MCHC 30.7 L (31.9-34.8) g/dL RDW 15.1 (12.3-16.5) % Plt Count 421 (151-488) x10(3)uL MPV 8.2 (7.1-12.4) fL Add Manual Diff Yes Neutrophils % (Manual) 77 (46-82) % Lymphocytes % (Manual) 19 (13-37) % Monocytes % (Manual) 4 (4-12) % Hypersegmented Neuts Few Anisocytosis Macrocytosis Moderate H POC VBG pH (7.32-7.43) pH Units POC VBG pCO2 (41-51) mmHg POC VBG HCO3 (22-29) mmol/L VBG Base Excess (-2 - 3+) mmol/L O2 Delivery Device Oxygen Flow Rate Sodium 141 (135-145) mmol/L Potassium 4.1 (3.5-5.3) mmol/L Chloride 96 L D (100-110) mmol/L Carbon Dioxide 15 L (21-32) mmol/L BUN 18 D (7-18) mg/dL Creatinine 1.4 H (0.55-1.02) mg/dL Est Cr Clr Drug Dosing TNP Estimated GFR (MDRD) 39 L (>60) BUN/Creatinine Ratio 12.9 (9-20) Glucose 163 H (80-116) mg/dL POC Glucose 123 H (80-116) mg/dL Lactic Acid (0.4-2.0) mmol/L Calcium 7.2 L (8.6-10.2) mg/dL Total Bilirubin 1.0 (0.1-1.3) mg/dL AST 111 H D (5-25) IU/L ALT 69 H D (12-36) U/L Alkaline Phosphatase 170 H (56-112) IU/L Ammonia Troponin I (4.0-60.3) pg/mL Total Protein 5.6 L (6.0-8.0) g/dL Albumin 2.0 L (3.5-5.2) g/dL Globulin 3.6 g/dL Albumin/Globulin Ratio 0.6 Urine Color (YELLOW) Urine Appearance (CLEAR) Urine pH (5.0-6.5) Ur Specific [place] (1.010-1.025) Urine Protein (NEGATIVE) mg/dL Urine Glucose (UA) (NORMAL) mg/dL Urine Ketones (NEGATIVE) mg/dL Urine Occult Blood (NEGATIVE) Urine Nitrite (NEGATIVE) Urine Bilirubin (NEGATIVE) Urine Urobilinogen (NEGATIVE) mg/dL Ur Leukocyte Esterase (NEGATIVE) Urine RBC (0-5) Urine WBC (0-5) Ur Squamous Epith Cells (NS,R,O) Urine Bacteria (NS) Urine Opiates Screen (NEGATIVE) Ur Buprenorphine Scrn (NEGATIVE) Ur Oxycodone Screen (NEGATIVE) Urine Methadone Screen (NEGATIVE) Ur Propoxyphene Screen (NEGATIVE) Ur Barbiturates Screen (NEGATIVE) Ur Tricyclics Screen (NEGATIVE) Ur Phencyclidine Scrn (NEGATIVE) Ur Amphetamine Screen (NEGATIVE) U Methamphetamines Scrn (NEGATIVE) U Benzodiazepines Scrn (NEGATIVE) U Cocaine Metab Screen (NEGATIVE) U Marijuana (THC) Screen (NEGATIVE) Ethyl Alcohol (<0.03) % SARS-CoV-2 RNA ([place]) (NEGATIVE) 12/22/20 12/22/20 12/22/20 Range/Units 11:10 11:10 11:10 WBC (3.0-10.3) x10-3/uL RBC (3.60-5.20) x10(6)uL Hgb (11.4-15.5) g/dL Hct (34.2-48.2) % MCV (76.7-100.5) fL MCH (23.9-33.9) pg MCHC (31.9-34.8) g/dL RDW (12.3-16.5) % Plt Count (151-488) x10(3)uL MPV (7.1-12.4) fL Add Manual Diff Neutrophils % (Manual) (46-82) % Lymphocytes % (Manual) (13-37) % Monocytes % (Manual) (4-12) % Hypersegmented Neuts Anisocytosis Macrocytosis POC VBG pH (7.32-7.43) pH Units POC VBG pCO2 (41-51) mmHg POC VBG HCO3 (22-29) mmol/L VBG Base Excess (-2 - 3+) mmol/L O2 Delivery Device Oxygen Flow Rate Sodium (135-145) mmol/L Potassium (3.5-5.3) mmol/L Chloride (100-110) mmol/L Carbon Dioxide (21-32) mmol/L BUN (7-18) mg/dL Creatinine (0.55-1.02) mg/dL Est Cr Clr Drug Dosing Estimated GFR (MDRD) (>60) BUN/Creatinine Ratio (9-20) Glucose (80-116) mg/dL POC Glucose (80-116) mg/dL Lactic Acid 1.8 (0.4-2.0) mmol/L Calcium (8.6-10.2) mg/dL Total Bilirubin (0.1-1.3) mg/dL AST (5-25) IU/L ALT (12-36) U/L Alkaline Phosphatase (56-112) IU/L Ammonia Troponin I 13.5 (4.0-60.3) pg/mL Total Protein (6.0-8.0) g/dL Albumin (3.5-5.2) g/dL Globulin g/dL Albumin/Globulin Ratio Urine Color (YELLOW) Urine Appearance (CLEAR) Urine pH (5.0-6.5) Ur Specific [place] (1.010-1.025) Urine Protein (NEGATIVE) mg/dL Urine Glucose (UA) (NORMAL) mg/dL Urine Ketones (NEGATIVE) mg/dL Urine Occult Blood (NEGATIVE) Urine Nitrite (NEGATIVE) Urine Bilirubin (NEGATIVE) Urine Urobilinogen (NEGATIVE) mg/dL Ur Leukocyte Esterase (NEGATIVE) Urine RBC (0-5) Urine WBC (0-5) Ur Squamous Epith Cells (NS,R,O) Urine Bacteria (NS) Urine Opiates Screen (NEGATIVE) Ur Buprenorphine Scrn (NEGATIVE) Ur Oxycodone Screen (NEGATIVE) Urine Methadone Screen (NEGATIVE) Ur Propoxyphene Screen (NEGATIVE) Ur Barbiturates Screen (NEGATIVE) Ur Tricyclics Screen (NEGATIVE) Ur Phencyclidine Scrn (NEGATIVE) Ur Amphetamine Screen (NEGATIVE) U Methamphetamines Scrn (NEGATIVE) U Benzodiazepines Scrn (NEGATIVE) U Cocaine Metab Screen (NEGATIVE) U Marijuana (THC) Screen (NEGATIVE) Ethyl Alcohol < 0.03 (<0.03) % SARS-CoV-2 RNA ([place]) (NEGATIVE) 12/22/20 12/22/20 12/22/20 Range/Units 11:55 12:18 12:18 WBC (3.0-10.3) x10-3/uL RBC (3.60-5.20) x10(6)uL Hgb (11.4-15.5) g/dL Hct (34.2-48.2) % MCV (76.7-100.5) fL MCH (23.9-33.9) pg MCHC (31.9-34.8) g/dL RDW (12.3-16.5) % Plt Count (151-488) x10(3)uL MPV (7.1-12.4) fL Add Manual Diff Neutrophils % (Manual) (46-82) % Lymphocytes % (Manual) (13-37) % Monocytes % (Manual) (4-12) % Hypersegmented Neuts Anisocytosis Macrocytosis POC VBG pH (7.32-7.43) pH Units POC VBG pCO2 (41-51) mmHg POC VBG HCO3 (22-29) mmol/L VBG Base Excess (-2 - 3+) mmol/L O2 Delivery Device Oxygen Flow Rate Sodium (135-145) mmol/L Potassium (3.5-5.3) mmol/L Chloride (100-110) mmol/L Carbon Dioxide (21-32) mmol/L BUN (7-18) mg/dL Creatinine (0.55-1.02) mg/dL Est Cr Clr Drug Dosing Estimated GFR (MDRD) (>60) BUN/Creatinine Ratio (9-20) Glucose (80-116) mg/dL POC Glucose (80-116) mg/dL Lactic Acid (0.4-2.0) mmol/L Calcium (8.6-10.2) mg/dL Total Bilirubin (0.1-1.3) mg/dL AST (5-25) IU/L ALT (12-36) U/L Alkaline Phosphatase (56-112) IU/L Ammonia Troponin I (4.0-60.3) pg/mL Total Protein (6.0-8.0) g/dL Albumin (3.5-5.2) g/dL Globulin g/dL Albumin/Globulin Ratio Urine Color Yellow (YELLOW) Urine Appearance Cloudy (CLEAR) Urine pH 6.0 (5.0-6.5) Ur Specific [place] 1.020 (1.010-1.025) Urine Protein Trace (NEGATIVE) mg/dL Urine Glucose (UA) Normal (NORMAL) mg/dL Urine Ketones 50 H (NEGATIVE) mg/dL Urine Occult Blood Trace (NEGATIVE) Urine Nitrite Negative (NEGATIVE) Urine Bilirubin Small H (NEGATIVE) Urine Urobilinogen 1 H (NEGATIVE) mg/dL Ur Leukocyte Esterase Large H (NEGATIVE) Urine RBC 5-10 H (0-5) Urine WBC >100 H (0-5) Ur Squamous Epith Cells Occasional (NS,R,O) Urine Bacteria Many H (NS) Urine Opiates Screen Negative (NEGATIVE) Ur Buprenorphine Scrn Negative (NEGATIVE) Ur Oxycodone Screen Negative (NEGATIVE) Urine Methadone Screen Negative (NEGATIVE) Ur Propoxyphene Screen Negative (NEGATIVE) Ur Barbiturates Screen Negative (NEGATIVE) Ur Tricyclics Screen Negative (NEGATIVE) Ur Phencyclidine Scrn Negative (NEGATIVE) Ur Amphetamine Screen Negative (NEGATIVE) U Methamphetamines Scrn Negative (NEGATIVE) U Benzodiazepines Scrn Negative (NEGATIVE) U Cocaine Metab Screen Negative (NEGATIVE) U Marijuana (THC) Screen Negative (NEGATIVE) Ethyl Alcohol (<0.03) % SARS-CoV-2 RNA ([place]) Negative (NEGATIVE) 12/22/20 12/23/20 12/23/20 Range/Units 15:45 06:10 06:10 WBC 12.2 H (3.0-10.3) x10-3/uL RBC 3.03 L (3.60-5.20) x10(6)uL Hgb 10.6 L (11.4-15.5) g/dL Hct 34.1 L (34.2-48.2) % MCV 112.5 H (76.7-100.5) fL MCH 35.1 H (23.9-33.9) pg MCHC 31.2 L (31.9-34.8) g/dL RDW 15.5 (12.3-16.5) % Plt Count 318 (151-488) x10(3)uL MPV 7.8 (7.1-12.4) fL Add Manual Diff Yes Neutrophils % (Manual) 75 (46-82) % Lymphocytes % (Manual) 22 (13-37) % Monocytes % (Manual) 3 L (4-12) % Hypersegmented Neuts Moderate Anisocytosis Few Macrocytosis Moderate H POC VBG pH (7.32-7.43) pH Units POC VBG pCO2 (41-51) mmHg POC VBG HCO3 (22-29) mmol/L VBG Base Excess (-2 - 3+) mmol/L O2 Delivery Device Oxygen Flow Rate Sodium 145 (135-145) mmol/L Potassium 3.6 (3.5-5.3) mmol/L Chloride 104 D (100-110) mmol/L Carbon Dioxide 11 L* (21-32) mmol/L BUN 16 (7-18) mg/dL Creatinine 1.1 H (0.55-1.02) mg/dL Est Cr Clr Drug Dosing 53.46 Estimated GFR (MDRD) 51 L (>60) BUN/Creatinine Ratio 14.5 (9-20) Glucose 147 H (80-116) mg/dL POC Glucose (80-116) mg/dL Lactic Acid (0.4-2.0) mmol/L Calcium 6.6 L (8.6-10.2) mg/dL Total Bilirubin (0.1-1.3) mg/dL AST (5-25) IU/L ALT (12-36) U/L Alkaline Phosphatase (56-112) IU/L Ammonia 172 Troponin I (4.0-60.3) pg/mL Total Protein (6.0-8.0) g/dL Albumin (3.5-5.2) g/dL Globulin g/dL Albumin/Globulin Ratio Urine Color (YELLOW) Urine Appearance (CLEAR) Urine pH (5.0-6.5) Ur Specific [place] (1.010-1.025) Urine Protein (NEGATIVE) mg/dL Urine Glucose (UA) (NORMAL) mg/dL Urine Ketones (NEGATIVE) mg/dL Urine Occult Blood (NEGATIVE) Urine Nitrite (NEGATIVE) Urine Bilirubin (NEGATIVE) Urine Urobilinogen (NEGATIVE) mg/dL Ur Leukocyte Esterase (NEGATIVE) Urine RBC (0-5) Urine WBC (0-5) Ur Squamous Epith Cells (NS,R,O) Urine Bacteria (NS) Urine Opiates Screen (NEGATIVE) Ur Buprenorphine Scrn (NEGATIVE) Ur Oxycodone Screen (NEGATIVE) Urine Methadone Screen (NEGATIVE) Ur Propoxyphene Screen (NEGATIVE) Ur Barbiturates Screen (NEGATIVE) Ur Tricyclics Screen (NEGATIVE) Ur Phencyclidine Scrn (NEGATIVE) Ur Amphetamine Screen (NEGATIVE) U Methamphetamines Scrn (NEGATIVE) U Benzodiazepines Scrn (NEGATIVE) U Cocaine Metab Screen (NEGATIVE) U Marijuana (THC) Screen (NEGATIVE) Ethyl Alcohol (<0.03) % SARS-CoV-2 RNA ([place]) (NEGATIVE) 12/23/20 12/23/20 Range/Units 07:54 08:37 WBC (3.0-10.3) x10-3/uL RBC (3.60-5.20) x10(6)uL Hgb (11.4-15.5) g/dL Hct (34.2-48.2) % MCV (76.7-100.5) fL MCH (23.9-33.9) pg MCHC (31.9-34.8) g/dL RDW (12.3-16.5) % Plt Count (151-488) x10(3)uL MPV (7.1-12.4) fL Add Manual Diff Neutrophils % (Manual) (46-82) % Lymphocytes % (Manual) (13-37) % Monocytes % (Manual) (4-12) % Hypersegmented Neuts Anisocytosis Macrocytosis POC VBG pH 7.35 (7.32-7.43) pH Units POC VBG pCO2 17 L (41-51) mmHg POC VBG HCO3 10 L (22-29) mmol/L VBG Base Excess -14 L (-2 - 3+) mmol/L O2 Delivery Device Room air Oxygen Flow Rate Not Reportable Sodium (135-145) mmol/L Potassium (3.5-5.3) mmol/L Chloride (100-110) mmol/L Carbon Dioxide (21-32) mmol/L BUN (7-18) mg/dL Creatinine (0.55-1.02) mg/dL Est Cr Clr Drug Dosing Estimated GFR (MDRD) (>60) BUN/Creatinine Ratio (9-20) Glucose (80-116) mg/dL POC Glucose 144 H (80-116) mg/dL Lactic Acid (0.4-2.0) mmol/L Calcium (8.6-10.2) mg/dL Total Bilirubin (0.1-1.3) mg/dL AST (5-25) IU/L ALT (12-36) U/L Alkaline Phosphatase (56-112) IU/L Ammonia Troponin I (4.0-60.3) pg/mL Total Protein (6.0-8.0) g/dL Albumin (3.5-5.2) g/dL Globulin g/dL Albumin/Globulin Ratio Urine Color (YELLOW) Urine Appearance (CLEAR) Urine pH (5.0-6.5) Ur Specific [place] (1.010-1.025) Urine Protein (NEGATIVE) mg/dL Urine Glucose (UA) (NORMAL) mg/dL Urine Ketones (NEGATIVE) mg/dL Urine Occult Blood (NEGATIVE) Urine Nitrite (NEGATIVE) Urine Bilirubin (NEGATIVE) Urine Urobilinogen (NEGATIVE) mg/dL Ur Leukocyte Esterase (NEGATIVE) Urine RBC (0-5) Urine WBC (0-5) Ur Squamous Epith Cells (NS,R,O) Urine Bacteria (NS) Urine Opiates Screen (NEGATIVE) Ur Buprenorphine Scrn (NEGATIVE) Ur Oxycodone Screen (NEGATIVE) Urine Methadone Screen (NEGATIVE) Ur Propoxyphene Screen (NEGATIVE) Ur Barbiturates Screen (NEGATIVE) Ur Tricyclics Screen (NEGATIVE) Ur Phencyclidine Scrn (NEGATIVE) Ur Amphetamine Screen (NEGATIVE) U Methamphetamines Scrn (NEGATIVE) U Benzodiazepines Scrn (NEGATIVE) U Cocaine Metab Screen (NEGATIVE) U Marijuana (THC) Screen (NEGATIVE) Ethyl Alcohol (<0.03) % SARS-CoV-2 RNA ([place]) (NEGATIVE) Carlos Results Last 24 Hours: Microbiology 12/22/20 12:18 Urine Culture - Preliminary Urine, Catheterized Gram Negative Rods Med Orders - Current: Current Medications Acetaminophen (Acetaminophen 650 Mg Tab.Er) 1,300 mg PO BID PRN PRN Reason: PAIN Amlodipine Besylate (Amlodipine 5 Mg Tab) 5 mg PO DAILY [facility] Atorvastatin Calcium (Atorvastatin 40 Mg Tab) 80 mg PO DAILY [facility] Last Admin: 12/23/20 08:55 Dose: Not Given Documented by: Ceftriaxone Sodium (Ceftriaxone 1 Gm Vial) 1 gm IVPUSH Q24H [facility] Last Admin: 12/22/20 12:46 Dose: 1 gm Documented by: Cetirizine HCl (Cetirizine 10 Mg Tab) 10 mg PO DAILY [facility] Last Admin: 12/23/20 08:56 Dose: Not Given Documented by: Dextrose/Water (50% Dextrose In Water 50 Ml Syringe) 50 ml IVPUSH ASDIRECTED PRN PRN Reason: Hypoglycemia Duloxetine HCl (Duloxetine 60 Mg Cap) 60 mg PO DAILY [facility] Last Admin: 12/23/20 08:55 Dose: Not Given Documented by: Enoxaparin Sodium (Enoxaparin 40 Mg/0.4 Ml Syringe) 40 mg SUBCUT Q12H [facility] Last Admin: 12/22/20 20:59 Dose: 40 mg Documented by: Gentamicin Sulfate (Gentamicin 0.3% Ophth Soln 5 Ml Bottle) 0 ml EYEBOTH QID [facility] Last Admin: 12/23/20 06:15 Dose: 1 drop Documented by: Glucagon (Glucagon,Human Recombinant 1 Mg Vial) 1 mg IM ASDIRECTED PRN PRN Reason: Hypoglycemia Sodium Chloride (Normal Saline) 1,000 mls @ 125 mls/hr IV ASDIRECTED [facility] Last Admin: 12/23/20 05:57 Dose: 125 mls/hr Documented by: Insulin Human Lispro (Insulin Lispro 100 Unit/Ml 3 Ml Kwikpen) 0 unit SUBCUT TIDMEALS [facility]; Protocol Last Admin: 12/23/20 08:47 Dose: Not Given Documented by: Lisinopril (Lisinopril 40 Mg Tab) 40 mg PO DAILY [facility] Last Admin: 12/23/20 08:55 Dose: Not Given Documented by: Metformin HCl (Metformin 500 Mg Tab) 500 mg PO BID [facility] Last Admin: 12/22/20 21:38 Dose: Not Given Documented by: Metoprolol Succinate (Metoprolol Succinate 50 Mg Tab.Er) 50 mg PO DAILY [facility] Last Admin: 12/23/20 08:55 Dose: Not Given Documented by: Pantoprazole Sodium (Pantoprazole 40 Mg Vial) 40 mg IVPUSH BEDTIME [facility] Last Admin: 12/22/20 20:56 Dose: 40 mg Documented by: Sodium Chloride (Sodium Chloride 0.9% 10 Ml Syringe) 10 ml FLUSH ASDIRECTED PRN PRN Reason: Keep Vein Open Last Admin: 12/22/20 12:46 Dose: 10 ml Documented by: Discontinued Medications Gentamicin Sulfate (Gentamicin 0.3% Ophth Soln 5 Ml Bottle) 0 ml EYEBOTH QID [facility] Stop: 12/30/20 09:01 Sodium Chloride (Normal Saline) 1,000 mls @ 999 mls/hr IV ASDIRECTED [facility] Last Admin: 12/22/20 11:14 Dose: 999 mls/hr Documented by: Potassium Chloride 20 meq/ (Premix) 100 mls @ 50 mls/hr IV ONETIME ONE Stop: 12/23/20 10:11 Iopamidol (Iopamidol 755 Mg/Ml 75 Ml Bottle) 75 ml IV ASDIRECTED ONE Stop: 12/23/20 08:00 Last Admin: 12/23/20 08:15 Dose: 75 ml Documented by: Pantoprazole Sodium (Pantoprazole 40 Mg Tab.Cr) 40 mg PO DAILY@0600 [facility] Comments:: Patient lying in bed supine. She did not open her eyes when I came into the room today however she does respond to sternal rub. She moans occasionally - Exam Quality Assessment: Supplemental Oxygen, DVT Prophylaxis General: Obtunded HEENT: Other (Pupils are dilated approximately 4 to 5 mm and are responsive/reactive to light bilaterally and sluggish) Lungs: Crackles Cardiovascular: Tachycardia GI/Abdominal Exam: Normal Bowel Sounds, Soft Back Exam: Normal Inspection Extremities: Pedal Edema Peripheral Pulses: 2+: Radial (L), Radial (R) Skin: Other (Scattered bruising in various stages of healing including large bruise in the right upper back, multiple small skin lesions, superficial) Neurological: Other (Lasko coma scale 10) - Patient Data Lab Results Last 24 hrs: Laboratory Results - last 24 hr 12/22/20 12/22/20 12/22/20 Range/Units 11:00 11:10 11:10 WBC 15.2 H (3.0-10.3) x10-3/uL RBC 3.23 L (3.60-5.20) x10(6)uL Hgb 11.3 L (11.4-15.5) g/dL Hct 36.9 (34.2-48.2) % MCV 114.4 H (76.7-100.5) fL MCH 35.2 H (23.9-33.9) pg MCHC 30.7 L (31.9-34.8) g/dL RDW 15.1 (12.3-16.5) % Plt Count 421 (151-488) x10(3)uL MPV 8.2 (7.1-12.4) fL Add Manual Diff Yes Neutrophils % (Manual) 77 (46-82) % Lymphocytes % (Manual) 19 (13-37) % Monocytes % (Manual) 4 (4-12) % Hypersegmented Neuts Few Anisocytosis Macrocytosis Moderate H POC VBG pH (7.32-7.43) pH Units POC VBG pCO2 (41-51) mmHg POC VBG HCO3 (22-29) mmol/L VBG Base Excess (-2 - 3+) mmol/L O2 Delivery Device Oxygen Flow Rate Sodium 141 (135-145) mmol/L Potassium 4.1 (3.5-5.3) mmol/L Chloride 96 L D (100-110) mmol/L Carbon Dioxide 15 L (21-32) mmol/L BUN 18 D (7-18) mg/dL Creatinine 1.4 H (0.55-1.02) mg/dL Est Cr Clr Drug Dosing TNP Estimated GFR (MDRD) 39 L (>60) BUN/Creatinine Ratio 12.9 (9-20) Glucose 163 H (80-116) mg/dL POC Glucose 123 H (80-116) mg/dL Lactic Acid (0.4-2.0) mmol/L Calcium 7.2 L (8.6-10.2) mg/dL Total Bilirubin 1.0 (0.1-1.3) mg/dL AST 111 H D (5-25) IU/L ALT 69 H D (12-36) U/L Alkaline Phosphatase 170 H (56-112) IU/L Ammonia Troponin I (4.0-60.3) pg/mL Total Protein 5.6 L (6.0-8.0) g/dL Albumin 2.0 L (3.5-5.2) g/dL Globulin 3.6 g/dL Albumin/Globulin Ratio 0.6 Urine Color (YELLOW) Urine Appearance (CLEAR) Urine pH (5.0-6.5) Ur Specific [place] (1.010-1.025) Urine Protein (NEGATIVE) mg/dL Urine Glucose (UA) (NORMAL) mg/dL Urine Ketones (NEGATIVE) mg/dL Urine Occult Blood (NEGATIVE) Urine Nitrite (NEGATIVE) Urine Bilirubin (NEGATIVE) Urine Urobilinogen (NEGATIVE) mg/dL Ur Leukocyte Esterase (NEGATIVE) Urine RBC (0-5) Urine WBC (0-5) Ur Squamous Epith Cells (NS,R,O) Urine Bacteria (NS) Urine Opiates Screen (NEGATIVE) Ur Buprenorphine Scrn (NEGATIVE) Ur Oxycodone Screen (NEGATIVE) Urine Methadone Screen (NEGATIVE) Ur Propoxyphene Screen (NEGATIVE) Ur Barbiturates Screen (NEGATIVE) Ur Tricyclics Screen (NEGATIVE) Ur Phencyclidine Scrn (NEGATIVE) Ur Amphetamine Screen (NEGATIVE) U Methamphetamines Scrn (NEGATIVE) U Benzodiazepines Scrn (NEGATIVE) U Cocaine Metab Screen (NEGATIVE) U Marijuana (THC) Screen (NEGATIVE) Ethyl Alcohol (<0.03) % SARS-CoV-2 RNA ([place]) (NEGATIVE) 12/22/20 12/22/20 12/22/20 Range/Units 11:10 11:10 11:10 WBC (3.0-10.3) x10-3/uL RBC (3.60-5.20) x10(6)uL Hgb (11.4-15.5) g/dL Hct (34.2-48.2) % MCV (76.7-100.5) fL MCH (23.9-33.9) pg MCHC (31.9-34.8) g/dL RDW (12.3-16.5) % Plt Count (151-488) x10(3)uL MPV (7.1-12.4) fL Add Manual Diff Neutrophils % (Manual) (46-82) % Lymphocytes % (Manual) (13-37) % Monocytes % (Manual) (4-12) % Hypersegmented Neuts Anisocytosis Macrocytosis POC VBG pH (7.32-7.43) pH Units POC VBG pCO2 (41-51) mmHg POC VBG HCO3 (22-29) mmol/L VBG Base Excess (-2 - 3+) mmol/L O2 Delivery Device Oxygen Flow Rate Sodium (135-145) mmol/L Potassium (3.5-5.3) mmol/L Chloride (100-110) mmol/L Carbon Dioxide (21-32) mmol/L BUN (7-18) mg/dL Creatinine (0.55-1.02) mg/dL Est Cr Clr Drug Dosing Estimated GFR (MDRD) (>60) BUN/Creatinine Ratio (9-20) Glucose (80-116) mg/dL POC Glucose (80-116) mg/dL Lactic Acid 1.8 (0.4-2.0) mmol/L Calcium (8.6-10.2) mg/dL Total Bilirubin (0.1-1.3) mg/dL AST (5-25) IU/L ALT (12-36) U/L Alkaline Phosphatase (56-112) IU/L Ammonia Troponin I 13.5 (4.0-60.3) pg/mL Total Protein (6.0-8.0) g/dL Albumin (3.5-5.2) g/dL Globulin g/dL Albumin/Globulin Ratio Urine Color (YELLOW) Urine Appearance (CLEAR) Urine pH (5.0-6.5) Ur Specific [place] (1.010-1.025) Urine Protein (NEGATIVE) mg/dL Urine Glucose (UA) (NORMAL) mg/dL Urine Ketones (NEGATIVE) mg/dL Urine Occult Blood (NEGATIVE) Urine Nitrite (NEGATIVE) Urine Bilirubin (NEGATIVE) Urine Urobilinogen (NEGATIVE) mg/dL Ur Leukocyte Esterase (NEGATIVE) Urine RBC (0-5) Urine WBC (0-5) Ur Squamous Epith Cells (NS,R,O) Urine Bacteria (NS) Urine Opiates Screen (NEGATIVE) Ur Buprenorphine Scrn (NEGATIVE) Ur Oxycodone Screen (NEGATIVE) Urine Methadone Screen (NEGATIVE) Ur Propoxyphene Screen (NEGATIVE) Ur Barbiturates Screen (NEGATIVE) Ur Tricyclics Screen (NEGATIVE) Ur Phencyclidine Scrn (NEGATIVE) Ur Amphetamine Screen (NEGATIVE) U Methamphetamines Scrn (NEGATIVE) U Benzodiazepines Scrn (NEGATIVE) U Cocaine Metab Screen (NEGATIVE) U Marijuana (THC) Screen (NEGATIVE) Ethyl Alcohol < 0.03 (<0.03) % SARS-CoV-2 RNA ([place]) (NEGATIVE) 12/22/20 12/22/20 12/22/20 Range/Units 11:55 12:18 12:18 WBC (3.0-10.3) x10-3/uL RBC (3.60-5.20) x10(6)uL Hgb (11.4-15.5) g/dL Hct (34.2-48.2) % MCV (76.7-100.5) fL MCH (23.9-33.9) pg MCHC (31.9-34.8) g/dL RDW (12.3-16.5) % Plt Count (151-488) x10(3)uL MPV (7.1-12.4) fL Add Manual Diff Neutrophils % (Manual) (46-82) % Lymphocytes % (Manual) (13-37) % Monocytes % (Manual) (4-12) % Hypersegmented Neuts Anisocytosis Macrocytosis POC VBG pH (7.32-7.43) pH Units POC VBG pCO2 (41-51) mmHg POC VBG HCO3 (22-29) mmol/L VBG Base Excess (-2 - 3+) mmol/L O2 Delivery Device Oxygen Flow Rate Sodium (135-145) mmol/L Potassium (3.5-5.3) mmol/L Chloride (100-110) mmol/L Carbon Dioxide (21-32) mmol/L BUN (7-18) mg/dL Creatinine (0.55-1.02) mg/dL Est Cr Clr Drug Dosing Estimated GFR (MDRD) (>60) BUN/Creatinine Ratio (9-20) Glucose (80-116) mg/dL POC Glucose (80-116) mg/dL Lactic Acid (0.4-2.0) mmol/L Calcium (8.6-10.2) mg/dL Total Bilirubin (0.1-1.3) mg/dL AST (5-25) IU/L ALT (12-36) U/L Alkaline Phosphatase (56-112) IU/L Ammonia Troponin I (4.0-60.3) pg/mL Total Protein (6.0-8.0) g/dL Albumin (3.5-5.2) g/dL Globulin g/dL Albumin/Globulin Ratio Urine Color Yellow (YELLOW) Urine Appearance Cloudy (CLEAR) Urine pH 6.0 (5.0-6.5) Ur Specific [place] 1.020 (1.010-1.025) Urine Protein Trace (NEGATIVE) mg/dL Urine Glucose (UA) Normal (NORMAL) mg/dL Urine Ketones 50 H (NEGATIVE) mg/dL Urine Occult Blood Trace (NEGATIVE) Urine Nitrite Negative (NEGATIVE) Urine Bilirubin Small H (NEGATIVE) Urine Urobilinogen 1 H (NEGATIVE) mg/dL Ur Leukocyte Esterase Large H (NEGATIVE) Urine RBC 5-10 H (0-5) Urine WBC >100 H (0-5) Ur Squamous Epith Cells Occasional (NS,R,O) Urine Bacteria Many H (NS) Urine Opiates Screen Negative (NEGATIVE) Ur Buprenorphine Scrn Negative (NEGATIVE) Ur Oxycodone Screen Negative (NEGATIVE) Urine Methadone Screen Negative (NEGATIVE) Ur Propoxyphene Screen Negative (NEGATIVE) Ur Barbiturates Screen Negative (NEGATIVE) Ur Tricyclics Screen Negative (NEGATIVE) Ur Phencyclidine Scrn Negative (NEGATIVE) Ur Amphetamine Screen Negative (NEGATIVE) U Methamphetamines Scrn Negative (NEGATIVE) U Benzodiazepines Scrn Negative (NEGATIVE) U Cocaine Metab Screen Negative (NEGATIVE) U Marijuana (THC) Screen Negative (NEGATIVE) Ethyl Alcohol (<0.03) % SARS-CoV-2 RNA ([place]) Negative (NEGATIVE) 12/22/20 12/23/20 12/23/20 Range/Units 15:45 06:10 06:10 WBC 12.2 H (3.0-10.3) x10-3/uL RBC 3.03 L (3.60-5.20) x10(6)uL Hgb 10.6 L (11.4-15.5) g/dL Hct 34.1 L (34.2-48.2) % MCV 112.5 H (76.7-100.5) fL MCH 35.1 H (23.9-33.9) pg MCHC 31.2 L (31.9-34.8) g/dL RDW 15.5 (12.3-16.5) % Plt Count 318 (151-488) x10(3)uL MPV 7.8 (7.1-12.4) fL Add Manual Diff Yes Neutrophils % (Manual) 75 (46-82) % Lymphocytes % (Manual) 22 (13-37) % Monocytes % (Manual) 3 L (4-12) % Hypersegmented Neuts Moderate Anisocytosis Few Macrocytosis Moderate H POC VBG pH (7.32-7.43) pH Units POC VBG pCO2 (41-51) mmHg POC VBG HCO3 (22-29) mmol/L VBG Base Excess (-2 - 3+) mmol/L O2 Delivery Device Oxygen Flow Rate Sodium 145 (135-145) mmol/L Potassium 3.6 (3.5-5.3) mmol/L Chloride 104 D (100-110) mmol/L Carbon Dioxide 11 L* (21-32) mmol/L BUN 16 (7-18) mg/dL Creatinine 1.1 H (0.55-1.02) mg/dL Est Cr Clr Drug Dosing 53.46 Estimated GFR (MDRD) 51 L (>60) BUN/Creatinine Ratio 14.5 (9-20) Glucose 147 H (80-116) mg/dL POC Glucose (80-116) mg/dL Lactic Acid (0.4-2.0) mmol/L Calcium 6.6 L (8.6-10.2) mg/dL Total Bilirubin (0.1-1.3) mg/dL AST (5-25) IU/L ALT (12-36) U/L Alkaline Phosphatase (56-112) IU/L Ammonia 172 Troponin I (4.0-60.3) pg/mL Total Protein (6.0-8.0) g/dL Albumin (3.5-5.2) g/dL Globulin g/dL Albumin/Globulin Ratio Urine Color (YELLOW) Urine Appearance (CLEAR) Urine pH (5.0-6.5) Ur Specific [place] (1.010-1.025) Urine Protein (NEGATIVE) mg/dL Urine Glucose (UA) (NORMAL) mg/dL Urine Ketones (NEGATIVE) mg/dL Urine Occult Blood (NEGATIVE) Urine Nitrite (NEGATIVE) Urine Bilirubin (NEGATIVE) Urine Urobilinogen (NEGATIVE) mg/dL Ur Leukocyte Esterase (NEGATIVE) Urine RBC (0-5) Urine WBC (0-5) Ur Squamous Epith Cells (NS,R,O) Urine Bacteria (NS) Urine Opiates Screen (NEGATIVE) Ur Buprenorphine Scrn (NEGATIVE) Ur Oxycodone Screen (NEGATIVE) Urine Methadone Screen (NEGATIVE) Ur Propoxyphene Screen (NEGATIVE) Ur Barbiturates Screen (NEGATIVE) Ur Tricyclics Screen (NEGATIVE) Ur Phencyclidine Scrn (NEGATIVE) Ur Amphetamine Screen (NEGATIVE) U Methamphetamines Scrn (NEGATIVE) U Benzodiazepines Scrn (NEGATIVE) U Cocaine Metab Screen (NEGATIVE) U Marijuana (THC) Screen (NEGATIVE) Ethyl Alcohol (<0.03) % SARS-CoV-2 RNA ([place]) (NEGATIVE) 12/23/20 12/23/20 Range/Units 07:54 08:37 WBC (3.0-10.3) x10-3/uL RBC (3.60-5.20) x10(6)uL Hgb (11.4-15.5) g/dL Hct (34.2-48.2) % MCV (76.7-100.5) fL MCH (23.9-33.9) pg MCHC (31.9-34.8) g/dL RDW (12.3-16.5) % Plt Count (151-488) x10(3)uL MPV (7.1-12.4) fL Add Manual Diff Neutrophils % (Manual) (46-82) % Lymphocytes % (Manual) (13-37) % Monocytes % (Manual) (4-12) % Hypersegmented Neuts Anisocytosis Macrocytosis POC VBG pH 7.35 (7.32-7.43) pH Units POC VBG pCO2 17 L (41-51) mmHg POC VBG HCO3 10 L (22-29) mmol/L VBG Base Excess -14 L (-2 - 3+) mmol/L O2 Delivery Device Room air Oxygen Flow Rate Not Reportable Sodium (135-145) mmol/L Potassium (3.5-5.3) mmol/L Chloride (100-110) mmol/L Carbon Dioxide (21-32) mmol/L BUN (7-18) mg/dL Creatinine (0.55-1.02) mg/dL Est Cr Clr Drug Dosing Estimated GFR (MDRD) (>60) BUN/Creatinine Ratio (9-20) Glucose (80-116) mg/dL POC Glucose 144 H (80-116) mg/dL Lactic Acid (0.4-2.0) mmol/L Calcium (8.6-10.2) mg/dL Total Bilirubin (0.1-1.3) mg/dL AST (5-25) IU/L ALT (12-36) U/L Alkaline Phosphatase (56-112) IU/L Ammonia Troponin I (4.0-60.3) pg/mL Total Protein (6.0-8.0) g/dL Albumin (3.5-5.2) g/dL Globulin g/dL Albumin/Globulin Ratio Urine Color (YELLOW) Urine Appearance (CLEAR) Urine pH (5.0-6.5) Ur Specific [place] (1.010-1.025) Urine Protein (NEGATIVE) mg/dL Urine Glucose (UA) (NORMAL) mg/dL Urine Ketones (NEGATIVE) mg/dL Urine Occult Blood (NEGATIVE) Urine Nitrite (NEGATIVE) Urine Bilirubin (NEGATIVE) Urine Urobilinogen (NEGATIVE) mg/dL Ur Leukocyte Esterase (NEGATIVE) Urine RBC (0-5) Urine WBC (0-5) Ur Squamous Epith Cells (NS,R,O) Urine Bacteria (NS) Urine Opiates Screen (NEGATIVE) Ur Buprenorphine Scrn (NEGATIVE) Ur Oxycodone Screen (NEGATIVE) Urine Methadone Screen (NEGATIVE) Ur Propoxyphene Screen (NEGATIVE) Ur Barbiturates Screen (NEGATIVE) Ur Tricyclics Screen (NEGATIVE) Ur Phencyclidine Scrn (NEGATIVE) Ur Amphetamine Screen (NEGATIVE) U Methamphetamines Scrn (NEGATIVE) U Benzodiazepines Scrn (NEGATIVE) U Cocaine Metab Screen (NEGATIVE) U Marijuana (THC) Screen (NEGATIVE) Ethyl Alcohol (<0.03) % SARS-CoV-2 RNA ([place]) (NEGATIVE) Result Diagrams: 12/23/20 06:10 12/23/20 06:10 Carlos Results Last 24 hrs: Microbiology 12/22/20 12:18 Urine Culture - Preliminary Urine, Catheterized Gram Negative Rods Sepsis Event Note - Evaluation Sepsis Screening Result: Sepsis Risk - Focused Exam Vital Signs: Vital Signs Temp Pulse Pulse Resp BP BP Pulse Ox 12/23/20 08:55 104 H 142/92 H 12/23/20 05:00 36.2 C 94 22 H 124/79 94 L 12/23/20 01:00 36.9 C 99 18 116/68 95 - Problem List & Annotations (1) Acute kidney injury SNOMED Code(s): 77115889, 75877327 Code(s): N17.9 - ACUTE KIDNEY FAILURE, UNSPECIFIED Status: Acute Current Visit: Yes (2) Diabetes mellitus type 2 in nonobese SNOMED Code(s): 351472392 Code(s): E11.9 - TYPE 2 DIABETES MELLITUS WITHOUT COMPLICATIONS Status: Chronic Current Visit: Yes (3) CAD (coronary artery disease) SNOMED Code(s): 36808139 Code(s): I25.10 - ATHSCL HEART DISEASE OF [place] CORONARY ARTERY W/O ANG PCTRS Status: Chronic Current Visit: Yes (4) History of heart artery stent SNOMED Code(s): 379293093, 785524117 Code(s): Z95.5 - PRESENCE OF CORONARY ANGIOPLASTY IMPLANT AND GRAFT Status: Chronic Current Visit: Yes (5) Alcohol abuse SNOMED Code(s): 71489411 Code(s): F10.10 - ALCOHOL ABUSE, UNCOMPLICATED Status: Chronic Current Visit: Yes (6) Major depressive disorder SNOMED Code(s): 642485477 Code(s): F32.9 - MAJOR DEPRESSIVE DISORDER, SINGLE EPISODE, UNSPECIFIED S tatus: Chronic Current Visit: Yes (7) CATHERINE (generalized anxiety disorder) SNOMED Code(s): 66265034 Code(s): F41.1 - GENERALIZED ANXIETY DISORDER Status: Chronic Current Visit: Yes (8) Encephalopathy SNOMED Code(s): 33499289 Code(s): G93.40 - ENCEPHALOPATHY, UNSPECIFIED Status: Acute Current Visit: Yes (9) UTI (urinary tract infection) SNOMED Code(s): 25598797 Code(s): N39.0 - URINARY TRACT INFECTION, SITE NOT SPECIFIED Status: Acute Current Visit: Yes (10) Edema SNOMED Code(s): 684244735, 310458496 Code(s): R60.9 - EDEMA, UNSPECIFIED Status: Acute Current Visit: No - Problem List Review Problem List Initiated/Reviewed/Updated: Yes - My Orders Last 24 Hours: My Active Orders 12/22/20 15:19 Patient Status [ADT] Routine Pulse Oximetry [RC] PRN Vital Signs [RC] Q4H DVT/VTE Prophylaxis Reflex [OM.PC] Per Unit Routine Resuscitation Status Routine 12/22/20 15:20 Antiembolic Devices [RC] .Routine VTE/DVT Education [RC] Click to Edit 12/22/20 18:48 Dextrose 50% in Water 50 ml IVPUSH ASDIRECTED PRN Glucagon,Human Recombinant [GlucaGen] 1 mg IM ASDIRECTED PRN 12/22/20 21:00 Enoxaparin [Lovenox] 40 mg SUBCUT Q12H Pantoprazole [ProTONIX IV] 40 mg IVPUSH BEDTIME 12/23/20 07:36 Ang Chest [CT] Routine 12/23/20 07:54 Brain wo Cont [MR] Routine 12/23/20 08:00 Insulin Lispro [HumaLOG] See Protocol SUBCUT TIDMEALS 12/23/20 08:35 ACTH, PLASMA Stat 12/24/20 18:46 VL Duplex Lwr Ext Veins Comp [US] Routine - Plan Plan:: 1. Encephalopathy: Ammonia level significantly elevated at 172, upper limit of normal for this lab was 48. Patient will be given lactulose to help resolve ammonia level further recommendations based on patient response 2. Urinary tract infection: Ceftriaxone. Treatment recommendations based on culture results 3. Acute kidney injury: Grossly resolved as of this a.m., continue with fluids and trend renal function 4. Edema: The left leg seems to be slightly larger than the right leg. We will get bilateral lower extremity venous duplex 5. Diabetes mellitus type 2: We will trend blood glucose and treat as necessary including sliding scale insulin if indicated 6. Comorbidities: Continue home medications as appropriate if patient allows us to give her oral medications if not we will treat to keep blood pressure, other vital signs within normal limits 7. DVT prophylaxis: Enoxaparin 40 mg subcu twice daily 8. GI prophylaxis: PPI 9. Disposition: Likely has liver disease with elevated ammonia causing hepatic encephalopathy. Treatment with lactulose as above and continue to treat UTI. CTA this morning to rule out PE secondary to tachycardia, tachypnea. Patient has metabolic acidosis likely secondary to ketoacidosis likely secondary to cirrhosis. This may have been exacerbated by the use of Lasix and vomiting.
[2020-12-23] MEDS: Enoxaparin 40 MG/0.4 ML Syringe SUBCUT SCH (09:06)
[2020-12-23] MEDS ORDERED: LACTULOSE ONE ×4 (10:00→19:00)
[2020-12-23] MEDS ORDERED: [UNRECOGNIZED DRUG - OTHER] ONE ×4 (10:00→19:00)
[2020-12-23] MEDS ORDERED: Insulin Lispro 100 Unit/ML 3 ML KwikPen SUBCUT ONE (12:15)
[2020-12-23] MEDS ORDERED: Azithromycin 500 MG in Sodium Chloride 0.9% 250 ML IV SCH (13:00)
[2020-12-23] MEDS: cefTRIAXone 1 GM Vial IVPUSH SCH (14:00)
[2020-12-23] MEDS ORDERED: cefTRIAXone 1 GM Vial IVPUSH SCH (14:30)
[2020-12-23] MEDS: Pantoprazole 40 MG Vial IVPUSH SCH (20:12)
[2020-12-23] MEDS ORDERED: Furosemide 40 MG/4 ML VIAL IVPUSH ONE (22:07)
--- NOTE | 2020-12-23 22:59 | CR ---
INDICATION: Short of breath. Blowing respirations. CHEST, ONE VIEW: AP upright portable view of the chest 12/23/20 was compared with 12/22/20. The heart remains normal in size and shape. The aorta is tortuous. Dextroconcave scoliosis lower thoracic spine is again noted. No gross consolidating pneumonia or definite effusion was seen. There is some tenting of the left hemidiaphragm suggesting an area of scarring, not visualized on the previous study. There is an appearance of interstitial infiltration in the mid to upper lung field on the right and the entire lung field on the left with some consolidation suggested in the right upper lung field additionally. Some air bronchograms are noted in that area. IMPRESSION: Findings are compatible with bilateral pneumonia, most consolidated in the left upper lung field and most severe on the left in general, compared with the right, which is relatively minimal. Findings may be on the basis of unusual pneumonia, although other etiologies such as lymphangitic spread of metastatic disease would be a consideration. Report was left on Dr. Brunner's voicemail at 2240 hours, 12/23/20. [facility]
[2020-12-23] MEDS: Sodium Chloride 0.9% 10 ML Syringe FLUSH PRN (23:06)
--- NOTE | 2020-12-23 23:52 | PCM.PN ---
- General Info Date of Service: 12/23/20 Subjective Update: I was called to the bedside because of increased respirations, alteration of mental status. I did speak Dr. Treviño, and apparently this is how she was through the day. She did get 2 doses of lactulose enema, treating alcoholic hepatic encephalopathy. She was admitted yesterday for nausea/ vomiting/ dehydration, previous history of type 2 diabetes, coronary disease and alcohol abuse - Patient Data Vitals - Most Recent: Last Vital Signs Temp 96.4 F L 12/23/20 20:25 Pulse 111 H 12/23/20 20:25 Resp 28 H 12/23/20 20:25 BP 147/95 H 12/23/20 20:25 Pulse Ox 94 L 12/23/20 20:25 Weight - Most Recent: 66.497 kg (Patient turned her head towards me and open her eyes when I first spoke to her and entering the room but would not speak further) I&O - Last 24 Hours: Intake & Output 12/23/20 12/23/20 12/24/20 14:59 22:59 06:59 Intake Total 957 Balance 957 Lab Results Last 24 Hours: Laboratory Results - last 24 hr 12/23/20 12/23/20 12/23/20 Range/Units 06:10 06:10 07:54 WBC 12.2 H (3.0-10.3) x10-3/uL RBC 3.03 L (3.60-5.20) x10(6)uL Hgb 10.6 L (11.4-15.5) g/dL Hct 34.1 L (34.2-48.2) % MCV 112.5 H (76.7-100.5) fL MCH 35.1 H (23.9-33.9) pg MCHC 31.2 L (31.9-34.8) g/dL RDW 15.5 (12.3-16.5) % Plt Count 318 (151-488) x10(3)uL MPV 7.8 (7.1-12.4) fL Add Manual Diff Yes Neutrophils % (Manual) 75 (46-82) % Band Neutrophils % (0-6) % Lymphocytes % (Manual) 22 (13-37) % Monocytes % (Manual) 3 L (4-12) % Hypersegmented Neuts Moderate Anisocytosis Few Macrocytosis Moderate H POC VBG pH (7.32-7.43) pH Units POC VBG pCO2 (41-51) mmHg POC VBG HCO3 (22-29) mmol/L VBG Base Excess (-2 - 3+) mmol/L O2 Delivery Device Oxygen Flow Rate Sodium 145 (135-145) mmol/L Potassium 3.6 (3.5-5.3) mmol/L Chloride 104 D (100-110) mmol/L Carbon Dioxide 11 L* (21-32) mmol/L BUN 16 (7-18) mg/dL Creatinine 1.1 H (0.55-1.02) mg/dL Est Cr Clr Drug Dosing 53.46 mL/min Estimated GFR (MDRD) 51 L (>60) BUN/Creatinine Ratio 14.5 (9-20) Glucose 147 H (80-116) mg/dL POC Glucose 144 H (80-116) mg/dL Calcium 6.6 L (8.6-10.2) mg/dL Ammonia Troponin I (4.0-60.3) pg/mL NT-Pro-B Natriuret Pep (<=125) pg/mL SARS-CoV-2 RNA ([place]) (NEGATIVE) 12/23/20 12/23/20 12/23/20 Range/Units 08:37 11:03 16:15 WBC (3.0-10.3) x10-3/uL RBC (3.60-5.20) x10(6)uL Hgb (11.4-15.5) g/dL Hct (34.2-48.2) % MCV (76.7-100.5) fL MCH (23.9-33.9) pg MCHC (31.9-34.8) g/dL RDW (12.3-16.5) % Plt Count (151-488) x10(3)uL MPV (7.1-12.4) fL Add Manual Diff Neutrophils % (Manual) (46-82) % Band Neutrophils % (0-6) % Lymphocytes % (Manual) (13-37) % Monocytes % (Manual) (4-12) % Hypersegmented Neuts Anisocytosis Macrocytosis POC VBG pH 7.35 (7.32-7.43) pH Units POC VBG pCO2 17 L (41-51) mmHg POC VBG HCO3 10 L (22-29) mmol/L VBG Base Excess -14 L (-2 - 3+) mmol/L O2 Delivery Device Room air Oxygen Flow Rate Not Reportable Sodium (135-145) mmol/L Potassium (3.5-5.3) mmol/L Chloride (100-110) mmol/L Carbon Dioxide (21-32) mmol/L BUN (7-18) mg/dL Creatinine (0.55-1.02) mg/dL Est Cr Clr Drug Dosing mL/min Estimated GFR (MDRD) (>60) BUN/Creatinine Ratio (9-20) Glucose (80-116) mg/dL POC Glucose 152 H (80-116) mg/dL Calcium (8.6-10.2) mg/dL Ammonia 65 Troponin I (4.0-60.3) pg/mL NT-Pro-B Natriuret Pep (<=125) pg/mL SARS-CoV-2 RNA ([place]) (NEGATIVE) 12/23/20 12/23/20 12/23/20 Range/Units 17:42 22:23 22:30 WBC (3.0-10.3) x10-3/uL RBC (3.60-5.20) x10(6)uL Hgb (11.4-15.5) g/dL Hct (34.2-48.2) % MCV (76.7-100.5) fL MCH (23.9-33.9) pg MCHC (31.9-34.8) g/dL RDW (12.3-16.5) % Plt Count (151-488) x10(3)uL MPV (7.1-12.4) fL Add Manual Diff Neutrophils % (Manual) (46-82) % Band Neutrophils % (0-6) % Lymphocytes % (Manual) (13-37) % Monocytes % (Manual) (4-12) % Hypersegmented Neuts Anisocytosis Macrocytosis POC VBG pH (7.32-7.43) pH Units POC VBG pCO2 (41-51) mmHg POC VBG HCO3 (22-29) mmol/L VBG Base Excess (-2 - 3+) mmol/L O2 Delivery Device Oxygen Flow Rate Sodium (135-145) mmol/L Potassium (3.5-5.3) mmol/L Chloride (100-110) mmol/L Carbon Dioxide (21-32) mmol/L BUN (7-18) mg/dL Creatinine (0.55-1.02) mg/dL Est Cr Clr Drug Dosing mL/min Estimated GFR (MDRD) (>60) BUN/Creatinine Ratio (9-20) Glucose (80-116) mg/dL POC Glucose 139 H (80-116) mg/dL Calcium (8.6-10.2) mg/dL Ammonia Troponin I (4.0-60.3) pg/mL NT-Pro-B Natriuret Pep 4095 H* (<=125) pg/mL SARS-CoV-2 RNA ([place]) Negative (NEGATIVE) 12/23/20 12/23/20 12/23/20 Range/Units 22:30 22:30 22:30 WBC 17.4 H (3.0-10.3) x10-3/uL RBC 3.03 L (3.60-5.20) x10(6)uL Hgb 10.6 L (11.4-15.5) g/dL Hct 34.3 (34.2-48.2) % MCV 113.3 H (76.7-100.5) fL MCH 34.9 H (23.9-33.9) pg MCHC 30.8 L (31.9-34.8) g/dL RDW 15.4 (12.3-16.5) % Plt Count 318 (151-488) x10(3)uL MPV 7.9 (7.1-12.4) fL Add Manual Diff Yes Neutrophils % (Manual) 89 H (46-82) % Band Neutrophils % 1 (0-6) % Lymphocytes % (Manual) 8 L (13-37) % Monocytes % (Manual) 2 L (4-12) % Hypersegmented Neuts Occasional Anisocytosis Macrocytosis POC VBG pH (7.32-7.43) pH Units POC VBG pCO2 (41-51) mmHg POC VBG HCO3 (22-29) mmol/L VBG Base Excess (-2 - 3+) mmol/L O2 Delivery Device Oxygen Flow Rate Sodium 149 H (135-145) mmol/L Potassium 3.9 (3.5-5.3) mmol/L Chloride 109 D (100-110) mmol/L Carbon Dioxide 10 L* (21-32) mmol/L BUN 15 (7-18) mg/dL Creatinine 1.1 H (0.55-1.02) mg/dL Est Cr Clr Drug Dosing 53.46 mL/min Estimated GFR (MDRD) 51 L (>60) BUN/Creatinine Ratio 13.6 (9-20) Glucose 158 H (80-116) mg/dL POC Glucose (80-116) mg/dL Calcium 6.8 L (8.6-10.2) mg/dL Ammonia Troponin I 78.4 H* (4.0-60.3) pg/mL NT-Pro-B Natriuret Pep (<=125) pg/mL SARS-CoV-2 RNA ([place]) (NEGATIVE) Carlos Results Last 24 Hours: Microbiology 12/22/20 12:35 Aerobic Blood Culture - Preliminary Blood - Venous NO GROWTH AFTER 1 DAY Anaerobic Blood Culture - Preliminary NO GROWTH AFTER 1 DAY 12/22/20 12:00 Aerobic Blood Culture - Preliminary Blood - Venous - Lab Draw NO GROWTH AFTER 1 DAY Anaerobic Blood Culture - Preliminary NO GROWTH AFTER 1 DAY 12/22/20 12:18 Urine Culture - Preliminary Urine, Catheterized Gram Negative Rods Med Orders - Current: Current Medications Acetaminophen (Acetaminophen 650 Mg Tab.Er) 1,300 mg PO BID PRN PRN Reason: PAIN Atorvastatin Calcium (Atorvastatin 40 Mg Tab) 80 mg PO DAILY [facility] Last Admin: 12/23/20 08:55 Dose: Not Given Documented by: Ceftriaxone Sodium (Ceftriaxone 1 Gm Vial) 1 gm IVPUSH Q24H [facility] Last Admin: 12/23/20 15:23 Dose: 1 gm Documented by: Cetirizine HCl (Cetirizine 10 Mg Tab) 10 mg PO DAILY [facility] Last Admin: 12/23/20 08:56 Dose: Not Given Documented by: Dextrose/Water (50% Dextrose In Water 50 Ml Syringe) 50 ml IVPUSH ASDIRECTED MN N PRN Reason: Hypoglycemia Duloxetine HCl (Duloxetine 60 Mg Cap) 60 mg PO DAILY [facility] Last Admin: 12/23/20 08:55 Dose: Not Given Documented by: Enoxaparin Sodium (Enoxaparin 40 Mg/0.4 Ml Syringe) 40 mg SUBCUT Q24H [facility] Gentamicin Sulfate (Gentamicin 0.3% Ophth Soln 5 Ml Bottle) 0 ml EYEBOTH QID [facility] Last Admin: 12/23/20 20:12 Dose: 1 drop Documented by: Glucagon (Glucagon,Human Recombinant 1 Mg Vial) 1 mg IM ASDIRECTED PRN PRN Reason: Hypoglycemia Sodium Chloride (Normal Saline) 1,000 mls @ 125 mls/hr IV ASDIRECTED [facility] Last Admin: 12/23/20 16:40 Dose: 125 mls/hr Documented by: Azithromycin 500 mg/ Sodium (Chloride) 250 mls @ 250 mls/hr IV Q24H [facility] Stop: 12/25/20 23:00 Last Admin: 12/23/20 13:16 Dose: 250 mls/hr Documented by: Insulin Human Lispro (Insulin Lispro 100 Unit/Ml 3 Ml Kwikpen) 0 unit SUBCUT TIDMEALS [facility]; Protocol Last Admin: 12/23/20 17:43 Dose: Not Given Documented by: Lisinopril (Lisinopril 40 Mg Tab) 40 mg PO DAILY [facility] Last Admin: 12/23/20 08:55 Dose: Not Given Documented by: Metformin HCl (Metformin 500 Mg Tab) 500 mg PO BID [facility] Last Admin: 12/22/20 21:38 Dose: Not Given Documented by: Metoprolol Succinate (Metoprolol Succinate 50 Mg Tab.Er) 50 mg PO DAILY [facility] Last Admin: 12/23/20 08:55 Dose: Not Given Documented by: Pantoprazole Sodium (Pantoprazole 40 Mg Vial) 40 mg IVPUSH BEDTIME [facility] Last Admin: 12/23/20 20:12 Dose: 40 mg Documented by: Sodium Chloride (Sodium Chloride 0.9% 10 Ml Syringe) 10 ml FLUSH ASDIRECTED PRN PRN Reason: Keep Vein Open Last Admin: 12/23/20 23:06 Dose: 10 ml Documented by: Discontinued Medications Amlodipine Besylate (Amlodipine 5 Mg Tab) 5 mg PO DAILY [facility] Last Admin: 12/23/20 10:11 Dose: Not Given Documented by: Ceftriaxone Sodium (Ceftriaxone 1 Gm Vial) 1 gm IVPUSH Q24H [facility] Last Admin: 12/23/20 14:00 Dose: Not Given Documented by: Sterile Water 700 ml/ (Lactulose 200 gm) 0 ml .XX ONETIME ONE Stop: 12/23/20 10:01 Last Admin: 12/23/20 10:10 Dose: 700 ml Documented by: Sterile Water 700 ml/ (Lactulose 200 gm) 0 ml .XX ONETIME ONE Stop: 12/23/20 19:01 Last Admin: 12/23/20 20:13 Dose: 700 ml Documented by: Enoxaparin Sodium (Enoxaparin 40 Mg/0.4 Ml Syringe) 40 mg SUBCUT Q12H [facility] Last Admin: 12/23/20 09:06 Dose: 40 mg Documented by: Furosemide (Furosemide 40 Mg/4 Ml Vial) 40 mg IVPUSH NOW ONE Stop: 12/23/20 22:08 Last Admin: 12/23/20 22:54 Dose: 40 mg Documented by: Gentamicin Sulfate (Gentamicin 0.3% Ophth Soln 5 Ml Bottle) 0 ml EYEBOTH QID [facility] Stop: 12/30/20 09:01 Sodium Chloride (Normal Saline) 1,000 mls @ 999 mls/hr IV ASDIRECTED [facility] Last Admin: 12/22/20 11:14 Dose: 999 mls/hr Documented by: Potassium Chloride 20 meq/ (Premix) 100 mls @ 50 mls/hr IV ONETIME ONE Stop: 12/23/20 10:11 Last Admin: 12/23/20 10:37 Dose: Not Given Documented by: Iopamidol (Iopamidol 755 Mg/Ml 75 Ml Bottle) 75 ml IV ASDIRECTED ONE Stop: 12/23/20 08:00 Last Admin: 12/23/20 08:15 Dose: 75 ml Documented by: Pantoprazole Sodium (Pantoprazole 40 Mg Tab.Cr) 40 mg PO DAILY@0600 [facility] - Exam General: Obtunded HEENT: Pupils Equal Neck: Supple Lungs: Crackles Cardiovascular: Regular Rate GI/Abdominal Exam: Normal Bowel Sounds, Soft Extremities: Pedal Edema #1 Interpretation EKG Date: 12/23/20 Rhythm: NSR P-Wave: Present QRS: Normal Comparison: No Change - Patient Data Lab Results Last 24 hrs: Laboratory Results - last 24 hr 12/23/20 12/23/20 12/23/20 Range/Units 06:10 06:10 07:54 WBC 12.2 H (3.0-10.3) x10-3/uL RBC 3.03 L (3.60-5.20) x10(6)uL Hgb 10.6 L (11.4-15.5) g/dL Hct 34.1 L (34.2-48.2) % MCV 112.5 H (76.7-100.5) fL MCH 35.1 H (23.9-33.9) pg MCHC 31.2 L (31.9-34.8) g/dL RDW 15.5 (12.3-16.5) % Plt Count 318 (151-488) x10(3)uL MPV 7.8 (7.1-12.4) fL Add Manual Diff Yes Neutrophils % (Manual) 75 (46-82) % Band Neutrophils % (0-6) % Lymphocytes % (Manual) 22 (13-37) % Monocytes % (Manual) 3 L (4-12) % Hypersegmented Neuts Moderate Anisocytosis Few Macrocytosis Moderate H POC VBG pH (7.32-7.43) pH Units POC VBG pCO2 (41-51) mmHg POC VBG HCO3 (22-29) mmol/L VBG Base Excess (-2 - 3+) mmol/L O2 Delivery Device Oxygen Flow Rate Sodium 145 (135-145) mmol/L Potassium 3.6 (3.5-5.3) mmol/L Chloride 104 D (100-110) mmol/L Carbon Dioxide 11 L* (21-32) mmol/L BUN 16 (7-18) mg/dL Creatinine 1.1 H (0.55-1.02) mg/dL Est Cr Clr Drug Dosing 53.46 mL/min Estimated GFR (MDRD) 51 L (>60) BUN/Creatinine Ratio 14.5 (9-20) Glucose 147 H (80-116) mg/dL POC Glucose 144 H (80-116) mg/dL Calcium 6.6 L (8.6-10.2) mg/dL Ammonia Troponin I (4.0-60.3) pg/mL NT-Pro-B Natriuret Pep (<=125) pg/mL SARS-CoV-2 RNA ([place]) (NEGATIVE) 12/23/20 12/23/20 12/23/20 Range/Units 08:37 11:03 16:15 WBC (3.0-10.3) x10-3/uL RBC (3.60-5.20) x10(6)uL Hgb (11.4-15.5) g/dL Hct (34.2-48.2) % MCV (76.7-100.5) fL MCH (23.9-33.9) pg MCHC (31.9-34.8) g/dL RDW (12.3-16.5) % Plt Count (151-488) x10(3)uL MPV (7.1-12.4) fL Add Manual Diff Neutrophils % (Manual) (46-82) % Band Neutrophils % (0-6) % Lymphocytes % (Manual) (13-37) % Monocytes % (Manual) (4-12) % Hypersegmented Neuts Anisocytosis Macrocytosis POC VBG pH 7.35 (7.32-7.43) pH Units POC VBG pCO2 17 L (41-51) mmHg POC VBG HCO3 10 L (22-29) mmol/L VBG Base Excess -14 L (-2 - 3+) mmol/L O2 Delivery Device Room air Oxygen Flow Rate Not Reportable Sodium (135-145) mmol/L Potassium (3.5-5.3) mmol/L Chloride (100-110) mmol/L Carbon Dioxide (21-32) mmol/L BUN (7-18) mg/dL Creatinine (0.55-1.02) mg/dL Est Cr Clr Drug Dosing mL/min Estimated GFR (MDRD) (>60) BUN/Creatinine Ratio (9-20) Glucose (80-116) mg/dL POC Glucose 152 H (80-116) mg/dL Calcium (8.6-10.2) mg/dL Ammonia 65 Troponin I (4.0-60.3) pg/mL NT-Pro-B Natriuret Pep (<=125) pg/mL SARS-CoV-2 RNA ([place]) (NEGATIVE) 12/23/20 12/23/20 12/23/20 Range/Units 17:42 22:23 22:30 WBC (3.0-10.3) x10-3/uL RBC (3.60-5.20) x10(6)uL Hgb (11.4-15.5) g/dL Hct (34.2-48.2) % MCV (76.7-100.5) fL MCH (23.9-33.9) pg MCHC (31.9-34.8) g/dL RDW (12.3-16.5) % Plt Count (151-488) x10(3)uL MPV (7.1-12.4) fL Add Manual Diff Neutrophils % (Manual) (46-82) % Band Neutrophils % (0-6) % Lymphocytes % (Manual) (13-37) % Monocytes % (Manual) (4-12) % Hypersegmented Neuts Anisocytosis Macrocytosis POC VBG pH (7.32-7.43) pH Units POC VBG pCO2 (41-51) mmHg POC VBG HCO3 (22-29) mmol/L VBG Base Excess (-2 - 3+) mmol/L O2 Delivery Device Oxygen Flow Rate Sodium (135-145) mmol/L Potassium (3.5-5.3) mmol/L Chloride (100-110) mmol/L Carbon Dioxide (21-32) mmol/L BUN (7-18) mg/dL Creatinine (0.55-1.02) mg/dL Est Cr Clr Drug Dosing mL/min Estimated GFR (MDRD) (>60) BUN/Creatinine Ratio (9-20) Glucose (80-116) mg/dL POC Glucose 139 H (80-116) mg/dL Calcium (8.6-10.2) mg/dL Ammonia Troponin I (4.0-60.3) pg/mL NT-Pro-B Natriuret Pep 4095 H* (<=125) pg/mL SARS-CoV-2 RNA ([place]) Negative (NEGATIVE) 12/23/20 12/23/20 12/23/20 Range/Units 22:30 22:30 22:30 WBC 17.4 H (3.0-10.3) x10-3/uL RBC 3.03 L (3.60-5.20) x10(6)uL Hgb 10.6 L (11.4-15.5) g/dL Hct 34.3 (34.2-48.2) % MCV 113.3 H (76.7-100.5) fL MCH 34.9 H (23.9-33.9) pg MCHC 30.8 L (31.9-34.8) g/dL RDW 15.4 (12.3-16.5) % Plt Count 318 (151-488) x10(3)uL MPV 7.9 (7.1-12.4) fL Add Manual Diff Yes Neutrophils % (Manual) 89 H (46-82) % Band Neutrophils % 1 (0-6) % Lymphocytes % (Manual) 8 L (13-37) % Monocytes % (Manual) 2 L (4-12) % Hypersegmented Neuts Occasional Anisocytosis Macrocytosis POC VBG pH (7.32-7.43) pH Units POC VBG pCO2 (41-51) mmHg POC VBG HCO3 (22-29) mmol/L VBG Base Excess (-2 - 3+) mmol/L O2 Delivery Device Oxygen Flow Rate Sodium 149 H (135-145) mmol/L Potassium 3.9 (3.5-5.3) mmol/L Chloride 109 D (100-110) mmol/L Carbon Dioxide 10 L* (21-32) mmol/L BUN 15 (7-18) mg/dL Creatinine 1.1 H (0.55-1.02) mg/dL Est Cr Clr Drug Dosing 53.46 mL/min Estimated GFR (MDRD) 51 L (>60) BUN/Creatinine Ratio 13.6 (9-20) Glucose 158 H (80-116) mg/dL POC Glucose (80-116) mg/dL Calcium 6.8 L (8.6-10.2) mg/dL Ammonia Troponin I 78.4 H* (4.0-60.3) pg/mL NT-Pro-B Natriuret Pep (<=125) pg/mL SARS-CoV-2 RNA ([place]) (NEGATIVE) Result Diagrams: 12/23/20 22:30 12/23/20 22:30 Carlos Results Last 24 hrs: Microbiology 12/22/20 12:35 Aerobic Blood Culture - Preliminary Blood - Venous NO GROWTH AFTER 1 DAY Anaerobic Blood Culture - Preliminary NO GROWTH AFTER 1 DAY 12/22/20 12:00 Aerobic Blood Culture - Preliminary Blood - Venous - Lab Draw NO GROWTH AFTER 1 DAY Anaerobic Blood Culture - Preliminary NO GROWTH AFTER 1 DAY 12/22/20 12:18 Urine Culture - Preliminary Urine, Catheterized Gram Negative Rods Sepsis Event Note - Evaluation Sepsis Screening Result: Sepsis Risk - Focused Exam Vital Signs: Vital Signs Temp Temp Pulse Resp BP Pulse Ox 12/23/20 20:25 96.4 F L 111 H 28 H 147/95 H 94 L 12/23/20 17:00 98.4 F 112 H 22 H 147/95 H 94 L 12/23/20 15:19 95 12/23/20 12:08 97.0 F 105 H 24 H 132/82 99 - Problem List & Annotations (1) Pneumonia SNOMED Code(s): 658236619 Code(s): J18.9 - PNEUMONIA, UNSPECIFIED ORGANISM Status: Acute Current Visit: Yes (2) Encephalopathy SNOMED Code(s): 17856267 Code(s): G93.40 - ENCEPHALOPATHY, UNSPECIFIED Status: Acute Current Visit: Yes (3) Alcohol abuse SNOMED Code(s): 93345171 Code(s): F10.10 - ALCOHOL ABUSE, UNCOMPLICATED Status: Chronic Current Visit: Yes (4) CAD (coronary artery disease) SNOMED Code(s): 76495720 Code(s): I25.10 - ATHSCL HEART DISEASE OF [place] CORONARY ARTERY W/O ANG PCTRS Status: Chronic Current Visit: Yes (5) Diabetes mellitus type 2 in nonobese SNOMED Code(s): 739333048 Code(s): E11.9 - TYPE 2 DIABETES MELLITUS WITHOUT COMPLICATIONS Status: Chronic Current Visit: Yes (6) Edema SNOMED Code(s): 957464671, 592293959 Code(s): R60.9 - EDEMA, UNSPECIFIED Status: Acute Current Visit: No (7) Metabolic acidosis SNOMED Code(s): 18793115 Code(s): E87.2 - ACIDOSIS Status: Acute Current Visit: Yes - Problem List Review Problem List Initiated/Reviewed/Updated: Yes - My Orders Last 24 Hours: My Active Orders 12/23/20 22:00 EKG 12 Lead [EK] Stat 12/23/20 22:01 EKG 12 Lead [EK] Routine 12/23/20 22:02 EKG Documentation Completion [RC] ASDIRECTED - Plan Plan:: I stopped the IV fluids, did a chest x-ray which showed infiltrates suggestive of unusual pneumonia. COVID-19 was negative.EKG was unremarkable, troponin was slightly elevated and BNP was 4000. I given at 40 mg of IV Lasix, with not much improvement movement. I called one call, at [facility] and will attempt transfer
[2020-12-24] MEDS: Gentamicin 0.3% Ophth Soln 5 ML Bottle EYEBOTH SCH (08:56)
[2020-12-24] MEDS ORDERED: Enoxaparin 40 MG/0.4 ML Syringe SUBCUT SCH (09:00)
[2020-12-24] MEDS: DULoxetine 60 MG Cap PO SCH (09:01)
[2020-12-24] MEDS: Metoprolol Succinate 50 MG Tab.ER PO SCH (09:01)
[2020-12-24] MEDS: atorvaSTATin 40 MG Tab PO SCH (09:01)
[2020-12-24] MEDS: Cetirizine 10 MG Tab PO SCH (09:01)
[2020-12-24] MEDS: Insulin Lispro 100 Unit/ML 3 ML KwikPen SUBCUT SCH (09:02)
--- NOTE | 2020-12-24 09:29 | PCM.DCSUM1 ---
Discharge Summary - Hospital Course HPI Initial Comments: Information for this report is taken from old records, provider secondary to the patient not answering any questions. 55-year-old lady was brought to the emergency department due to a 1 week history of nausea, vomiting, diarrhea. Over the last several days she has been disoriented and confused. She has had decreased appetite. She has low back pain which is reported as chronic. Family did not report any history of fever, chills, flulike symptoms. She is fully vaccinated against Covid and has no known recent exposures. Review of her past medical record from [facility] shows a history of hypertension, coronary artery disease with history of stent placement. 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 Review of her past medical record shows that her A1c was 7.3 March 23, 2020. She did not have a history of kidney disease or reduced kidney function prior to today's admission according to previous labs performed 03/23/2020. Diagnosis: Stroke: No - Discharge Data Discharge Date: 12/24/20 Discharge Disposition: DC/Tfer to Acute Hospital 02 Condition: Critical - Referral to [facility] Primary Care Physician: Nusrat Ireland NP - Patient Summary/Data Hospital Course: She was admitted with UTI on ceftriaxone, had altered mental status that did not improve with treatment of UTI. Ammonia came back high at 172, gave 2 lactulose enemas, minimal response to this. She has was having increased respirations, tachycardia, CTA was done, no PE. Continued to decline overnight, Dr Brunner ordered CXR last night, showed unusual pneumonia bilateral upper lobes, questioned lymphangitic metastatic disease. EKG showed sinus tachycardia. Requiring 6L of oxygen by ga. Covid was negative. Troponin was 78.4 and BNP was 4095. IVF were stopped last night, sodium went up to 152, WBC 20.4. Dr Brunner called [facility] last night and accepted patient in transfer for higher level of care, ground ambulance attempted transfer overnight but had to turn around due to winter road conditions. Transfer will be done this morning by ground ambulance now that conditions have improved. - Patient Instructions Diet: NPO Other/Special Instructions: Transfer to [facility] for higher level of care. - Discharge Plan Home Medications: Home Meds Acetaminophen [Tylenol Arthritis Pain] 1,300 mg PO BID PRN 12/13/20 [History] Cetirizine [ZyrTEC] 10 mg PO DAILY 12/13/20 [History] DULoxetine [Cymbalta] 60 mg PO DAILY 12/13/20 [History] Fenofibrate Nanocrystallized [Fenofibrate] 145 mg PO DAILY 12/13/20 [History] Furosemide [Lasix] 20 mg PO DAILY 7 Days #7 tab 12/13/20 [Rx] Metoprolol Succinate 50 mg PO DAILY 12/13/20 [History] Omeprazole 20 mg PO DAILY 12/13/20 [History] amLODIPine [Norvasc] 5 mg PO DAILY 12/13/20 [History] atorvaSTATin [Lipitor] 80 mg PO DAILY 12/13/20 [History] lisinopriL [Lisinopril] 40 mg PO DAILY 12/13/20 [History] metFORMIN [Glucophage] 500 mg PO BID 12/13/20 [History] Cyanocobalamin (Vitamin B-12) [Vitamin B-12] 50 mcg PO DAILY 12/22/20 [History] Azithromycin [Zithromax] 500 mg IV Q24H vial 12/24/20 [Rx] Enoxaparin [Lovenox] 40 mg SUBCUT Q24H syringe 12/24/20 [Rx] cefTRIAXone [Rocephin] 1 gm IVPUSH Q24H vial 12/24/20 [Rx] Oxygen Therapy Mode: Nasal Cannula Forms: ED Department Discharge Referrals: Graciela Ireland, [employer]PERATOR [Primary Care Provider] - - Discharge Summary/Plan Comment DC Time >30 min.: No Total # of Minutes for Discharge Time: 15 min - General Info Date of Service: 12/24/20 Subjective Update: obtunded, unable to answer questions. She was accepted in transfer overnight for worsening encephalopathy but due to road conditions ambulance had to turn around and were unable to make it to [place]. Transfer on hold until road conditions improve for ground ambulance. - Patient Data Vitals - Most Recent: Last Vital Signs Temp 97.4 F 12/24/20 07:30 Pulse 133 H 12/24/20 07:30 Resp 36 H 12/24/20 07:30 BP 150/95 H 12/24/20 07:30 Pulse Ox 91 L 12/24/20 08:00 Weight - Most Recent: 146 lb 9.6 oz (Patient turned her head towards me and open her eyes when I first spoke to her and entering the room but would not speak further) I&O - Last 24 hours: Intake & Output 12/23/20 12/24/20 12/24/20 22:59 06:59 14:59 Intake Total 957 Balance 957 Lab Results - Last 24 hrs: Laboratory Results - last 24 hr 12/23/20 12/23/20 12/23/20 Range/Units 11:03 16:15 17:42 WBC (3.0-10.3) x10-3/uL RBC (3.60-5.20) x10(6)uL Hgb (11.4-15.5) g/dL Hct (34.2-48.2) % MCV (76.7-100.5) fL MCH (23.9-33.9) pg MCHC (31.9-34.8) g/dL RDW (12.3-16.5) % Plt Count (151-488) x10(3)uL MPV (7.1-12.4) fL Add Manual Diff Neutrophils % (Manual) (46-82) % Band Neutrophils % (0-6) % Lymphocytes % (Manual) (13-37) % Monocytes % (Manual) (4-12) % Hypersegmented Neuts Anisocytosis Macrocytosis Sodium (135-145) mmol/L Potassium (3.5-5.3) mmol/L Chloride (100-110) mmol/L Carbon Dioxide (21-32) mmol/L BUN (7-18) mg/dL Creatinine (0.55-1.02) mg/dL Est Cr Clr Drug Dosing mL/min Estimated GFR (MDRD) (>60) BUN/Creatinine Ratio (9-20) Glucose (80-116) mg/dL POC Glucose 152 H 139 H (80-116) mg/dL Lactic Acid (0.4-2.0) mmol/L Calcium (8.6-10.2) mg/dL Total Bilirubin (0.1-1.3) mg/dL AST (5-25) IU/L ALT (12-36) U/L Alkaline Phosphatase (56-112) IU/L Ammonia 65 Troponin I (4.0-60.3) pg/mL NT-Pro-B Natriuret Pep (<=125) pg/mL Total Protein (6.0-8.0) g/dL Albumin (3.5-5.2) g/dL Globulin g/dL Albumin/Globulin Ratio Salicylates (<2.8) mg/dL SARS-CoV-2 RNA ([place]) (NEGATIVE) 12/23/20 12/23/20 12/23/20 Range/Units 22:23 22:30 22:30 WBC 17.4 H (3.0-10.3) x10-3/uL RBC 3.03 L (3.60-5.20) x10(6)uL Hgb 10.6 L (11.4-15.5) g/dL Hct 34.3 (34.2-48.2) % MCV 113.3 H (76.7-100.5) fL MCH 34.9 H (23.9-33.9) pg MCHC 30.8 L (31.9-34.8) g/dL RDW 15.4 (12.3-16.5) % Plt Count 318 (151-488) x10(3)uL MPV 7.9 (7.1-12.4) fL Add Manual Diff Yes Neutrophils % (Manual) 89 H (46-82) % Band Neutrophils % 1 (0-6) % Lymphocytes % (Manual) 8 L (13-37) % Monocytes % (Manual) 2 L (4-12) % Hypersegmented Neuts Occasional Anisocytosis Macrocytosis Sodium (135-145) mmol/L Potassium (3.5-5.3) mmol/L Chloride (100-110) mmol/L Carbon Dioxide (21-32) mmol/L BUN (7-18) mg/dL Creatinine (0.55-1.02) mg/dL Est Cr Clr Drug Dosing mL/min Estimated GFR (MDRD) (>60) BUN/Creatinine Ratio (9-20) Glucose (80-116) mg/dL POC Glucose (80-116) mg/dL Lactic Acid (0.4-2.0) mmol/L Calcium (8.6-10.2) mg/dL Total Bilirubin (0.1-1.3) mg/dL AST (5-25) IU/L ALT (12-36) U/L Alkaline Phosphatase (56-112) IU/L Ammonia Troponin I (4.0-60.3) pg/mL NT-Pro-B Natriuret Pep 4095 H* (<=125) pg/mL Total Protein (6.0-8.0) g/dL Albumin (3.5-5.2) g/dL Globulin g/dL Albumin/Globulin Ratio Salicylates (<2.8) mg/dL SARS-CoV-2 RNA ([place]) Negative (NEGATIVE) 12/23/20 12/23/20 12/23/20 Range/Units 22:30 22:30 23:32 WBC (3.0-10.3) x10-3/uL RBC (3.60-5.20) x10(6)uL Hgb (11.4-15.5) g/dL Hct (34.2-48.2) % MCV (76.7-100.5) fL MCH (23.9-33.9) pg MCHC (31.9-34.8) g/dL RDW (12.3-16.5) % Plt Count (151-488) x10(3)uL MPV (7.1-12.4) fL Add Manual Diff Neutrophils % (Manual) (46-82) % Band Neutrophils % (0-6) % Lymphocytes % (Manual) (13-37) % Monocytes % (Manual) (4-12) % Hypersegmented Neuts Anisocytosis Macrocytosis Sodium 149 H (135-145) mmol/L Potassium 3.9 (3.5-5.3) mmol/L Chloride 109 D (100-110) mmol/L Carbon Dioxide 10 L* (21-32) mmol/L BUN 15 (7-18) mg/dL Creatinine 1.1 H (0.55-1.02) mg/dL Est Cr Clr Drug Dosing 53.46 mL/min Estimated GFR (MDRD) 51 L (>60) BUN/Creatinine Ratio 13.6 (9-20) Glucose 158 H (80-116) mg/dL POC Glucose (80-116) mg/dL Lactic Acid (0.4-2.0) mmol/L Calcium 6.8 L (8.6-10.2) mg/dL Total Bilirubin (0.1-1.3) mg/dL AST (5-25) IU/L ALT (12-36) U/L Alkaline Phosphatase (56-112) IU/L Ammonia Troponin I 78.4 H* (4.0-60.3) pg/mL NT-Pro-B Natriuret Pep (<=125) pg/mL Total Protein (6.0-8.0) g/dL Albumin (3.5-5.2) g/dL Globulin g/dL Albumin/Globulin Ratio Salicylates 4.3 (<2.8) mg/dL SARS-CoV-2 RNA ([place]) (NEGATIVE) 12/24/20 12/24/20 12/24/20 Range/Units 00:43 06:15 06:15 WBC 20.4 H (3.0-10.3) x10-3/uL RBC 3.38 L (3.60-5.20) x10(6)uL Hgb 11.8 (11.4-15.5) g/dL Hct 39.2 (34.2-48.2) % MCV 116.1 H (76.7-100.5) fL MCH 34.9 H (23.9-33.9) pg MCHC 30.0 L (31.9-34.8) g/dL RDW 15.7 (12.3-16.5) % Plt Count 486 (151-488) x10(3)uL MPV 8.2 (7.1-12.4) fL Add Manual Diff Yes Neutrophils % (Manual) 83 H (46-82) % Band Neutrophils % 1 (0-6) % Lymphocytes % (Manual) 10 L (13-37) % Monocytes % (Manual) 6 (4-12) % Hypersegmented Neuts Moderate Anisocytosis Few Macrocytosis Moderate H Sodium 152 H (135-145) mmol/L Potassium 3.3 L (3.5-5.3) mmol/L Chloride 107 (100-110) mmol/L Carbon Dioxide 10 L* (21-32) mmol/L BUN 14 (7-18) mg/dL Creatinine 1.1 H (0.55-1.02) mg/dL Est Cr Clr Drug Dosing 53.46 mL/min Estimated GFR (MDRD) 51 L (>60) BUN/Creatinine Ratio 12.7 (9-20) Glucose 172 H (80-116) mg/dL POC Glucose (80-116) mg/dL Lactic Acid 1.4 (0.4-2.0) mmol/L Calcium 7.3 L (8.6-10.2) mg/dL Total Bilirubin 0.9 (0.1-1.3) mg/dL AST 93 H D (5-25) IU/L ALT 57 H D (12-36) U/L Alkaline Phosphatase 174 H (56-112) IU/L Ammonia Troponin I (4.0-60.3) pg/mL NT-Pro-B Natriuret Pep (<=125) pg/mL Total Protein 6.1 (6.0-8.0) g/dL Albumin 1.8 L (3.5-5.2) g/dL Globulin 4.3 g/dL Albumin/Globulin Ratio 0.4 Salicylates (<2.8) mg/dL SARS-CoV-2 RNA ([place]) (NEGATIVE) PENNY Results - Last 24 hrs: Microbiology 12/22/20 12:18 Urine Culture - Final Urine, Catheterized Escherichia Coli 12/22/20 12:35 Aerobic Blood Culture - Preliminary Blood - Venous NO GROWTH AFTER 1 DAY Anaerobic Blood Culture - Preliminary NO GROWTH AFTER 1 DAY 12/22/20 12:00 Aerobic Blood Culture - Preliminary Blood - Venous - Lab Draw NO GROWTH AFTER 1 DAY Anaerobic Blood Culture - Preliminary NO GROWTH AFTER 1 DAY Med Orders - Current: Current Medications Acetaminophen (Acetaminophen 650 Mg Tab.Er) 1,300 mg PO BID PRN PRN Reason: PAIN Atorvastatin Calcium (Atorvastatin 40 Mg Tab) 80 mg PO DAILY [facility] Last Admin: 12/24/20 09:01 Dose: Not Given Documented by: Ceftriaxone Sodium (Ceftriaxone 1 Gm Vial) 1 gm IVPUSH Q24H [facility] Last Admin: 12/23/20 15:23 Dose: 1 gm Documented by: Cetirizine HCl (Cetirizine 10 Mg Tab) 10 mg PO DAILY [facility] Last Admin: 12/24/20 09:01 Dose: Not Given Documented by: Dextrose/Water (50% Dextrose In Water 50 Ml Syringe) 50 ml IVPUSH ASDIRECTED PRN PRN Reason: Hypoglycemia Duloxetine HCl (Duloxetine 60 Mg Cap) 60 mg PO DAILY [facility] Last Admin: 12/24/20 09:01 Dose: Not Given Documented by: Enoxaparin Sodium (Enoxaparin 40 Mg/0.4 Ml Syringe) 40 mg SUBCUT Q24H [facility] Last Admin: 12/24/20 08:58 Dose: 40 mg Documented by: Gentamicin Sulfate (Gentamicin 0.3% Ophth Soln 5 Ml Bottle) 0 ml EYEBOTH QID [facility] Last Admin: 12/24/20 08:56 Dose: 1 drop Documented by: Glucagon (Glucagon,Human Recombinant 1 Mg Vial) 1 mg IM ASDIRECTED PRN PRN Reason: Hypoglycemia Sodium Chloride (Normal Saline) 1,000 mls @ 125 mls/hr IV ASDIRECTED [facility] Last Admin: 12/23/20 16:40 Dose: 125 mls/hr Documented by: Azithromycin 500 mg/ Sodium (Chloride) 250 mls @ 250 mls/hr IV Q24H [facility] Stop: 12/25/20 23:00 Last Admin: 12/23/20 13:16 Dose: 250 mls/hr Documented by: Insulin Human Lispro (Insulin Lispro 100 Unit/Ml 3 Ml Kwikpen) 0 unit SUBCUT TIDMEALS [facility]; Protocol Last Admin: 12/24/20 09:02 Dose: Not Given Documented by: Lisinopril (Lisinopril 40 Mg Tab) 40 mg PO DAILY [facility] Last Admin: 12/24/20 09:01 Dose: Not Given Documented by: Metformin HCl (Metformin 500 Mg Tab) 500 mg PO BID [facility] Last Admin: 12/22/20 21:38 Dose: Not Given Documented by: Metoprolol Succinate (Metoprolol Succinate 50 Mg Tab.Er) 50 mg PO DAILY [facility] Last Admin: 12/24/20 09:01 Dose: Not Given Documented by: Pantoprazole Sodium (Pantoprazole 40 Mg Vial) 40 mg IVPUSH BEDTIME [facility] Last Admin: 12/23/20 20:12 Dose: 40 mg Documented by: Sodium Chloride (Sodium Chloride 0.9% 10 Ml Syringe) 10 ml FLUSH ASDIRECTED PRN PRN Reason: Keep Vein Open Last Admin: 12/23/20 23:06 Dose: 10 ml Documented by: Discontinued Medications Amlodipine Besylate (Amlodipine 5 Mg Tab) 5 mg PO DAILY [facility] Last Admin: 12/23/20 10:11 Dose: Not Given Documented by: Ceftriaxone Sodium (Ceftriaxone 1 Gm Vial) 1 gm IVPUSH Q24H [facility] Last Admin: 12/23/20 14:00 Dose: Not Given Documented by: Sterile Water 700 ml/ (Lactulose 200 gm) 0 ml .XX ONETIME ONE Stop: 12/23/20 10:01 Last Admin: 12/23/20 10:10 Dose: 700 ml Documented by: Sterile Water 700 ml/ (Lactulose 200 gm) 0 ml .XX ONETIME ONE Stop: 12/23/20 19:01 Last Admin: 12/23/20 20:13 Dose: 700 ml Documented by: Enoxaparin Sodium (Enoxaparin 40 Mg/0.4 Ml Syringe) 40 mg SUBCUT Q12H [facility] Last Admin: 12/23/20 09:06 Dose: 40 mg Documented by: Furosemide (Furosemide 40 Mg/4 Ml Vial) 40 mg IVPUSH NOW ONE Stop: 12/23/20 22:08 Last Admin: 12/23/20 22:54 Dose: 40 mg Documented by: Gentamicin Sulfate (Gentamicin 0.3% Ophth Soln 5 Ml Bottle) 0 ml EYEBOTH QID [facility]ILLA Stop: 12/30/20 09:01 Sodium Chloride (Normal Saline) 1,000 mls @ 999 mls/hr IV ASDIRECTED [facility] Last Admin: 12/22/20 11:14 Dose: 999 mls/hr Documented by: Potassium Chloride 20 meq/ (Premix) 100 mls @ 50 mls/hr IV ONETIME ONE Stop: 12/23/20 10:11 Last Admin: 12/23/20 10:37 Dose: Not Given Documented by: Iopamidol (Iopamidol 755 Mg/Ml 75 Ml Bottle) 75 ml IV ASDIRECTED ONE Stop: 12/23/20 08:00 Last Admin: 12/23/20 08:15 Dose: 75 ml Documented by: Pantoprazole Sodium (Pantoprazole 40 Mg Tab.Cr) 40 mg PO DAILY@0600 [facility] - Exam Quality Assessment: Reports: Supplemental Oxygen General: Reports: Obtunded Lungs: Reports: Clear to Auscultation, Other (pursed lip breathing). Denies: Normal Respiratory Effort (increased effort, seasaw breathing, abdominal breathing), Crackles Cardiovascular: Reports: Tachycardia GI/Abdominal Exam: Soft, Non-Tender, No Distention, Abnormal Bowel Sounds (hypoactive BS x 4) (Female) Exam: Deferred Rectal (Female) Exam: Deferred Extremities: No Pedal Edema, Mottled (on her knees) Skin: Reports: Warm, Dry, Intact
== END 2020-12-24 09:45 | DRG 432 ==
LOC: SUPCPDRO 10:48 → FB.ED 10:48 → UNDOADMOB 12:58 → FB.MS 12:58 → OBSVTOIN 12-23 09:06
PROVIDERS: ADMIT Student in an Organized Health Care Education/Training Program; ATTEND Family Medicine
DX: K70.40 Alcoholic hepatic failure without coma (principal); J18.9 Pneumonia, unspecified organism; N39.0 Urinary tract infection, site not specified; N17.9 Acute kidney failure, unspecified; E87.2 Acidosis; F32.A Depression, unspecified; E11.9 Type 2 diabetes mellitus without complications; F17.210 Nicotine dependence, cigarettes, uncomplicated; Z20.822 Contact with and (suspected) exposure to COVID-19; I25.10 Atherosclerotic heart disease of native coronary artery without angina pectoris; F41.1 Generalized anxiety disorder; K74.60 Unspecified cirrhosis of liver; Z79.84 Long term (current) use of oral hypoglycemic drugs; Z95.5 Presence of coronary angioplasty implant and graft; Z79.899 Other long term (current) drug therapy
CPT/HCPCS: 36415; 51702; 70450; 71045; 71275; 80048; 80053; 80179; 80307; 81001; 82024; 82140; 82947; 83605; 83880; 84484; 85025; 87040; 87086; 87088; 87186; 93005; 99285-25; A9270-GY; C9113; J0456; J0696; J1650; J1815; J1940; J7030; J7050; Q9967; U0002

== ENCOUNTER 2021-12-11 17:10 | Emergency (ER) | payer MEDICAID ==
[2021-12-11] MEDS: 50% Dextrose in Water 50 ML Syringe IVPUSH ONE ×2 (17:10→17:21)
[2021-12-11] MEDS: Dextrose 5%-0.9% NaCl 1,000 ML IV SCH (17:19)
[2021-12-11 17:43] LABS: ESTIMATED GFR 75 mL/min (>60)
== END 2021-12-11 19:10 | disposition home or self-care (01) ==
LOC: FB.ED 17:10
DX: E11.649 Type 2 diabetes mellitus with hypoglycemia without coma (principal); Z72.0 Tobacco use; Z79.899 Other long term (current) drug therapy
CPT/HCPCS: 36415; 80048; 82947; 85025; 96374; 99284-25